=== PATIENT | female | born 1945 | race Caucasian/White ===

== ENCOUNTER 2016-12-18 17:46 | Inpatient (IN) | payer MEDICARE ==
--- NOTE | 2016-12-18 18:30 | ER Document Report ---
ED General - General Chief Complaint: Skin Sore(s) Stated Complaint: FALL/KNEE PAIN Notes: Patient is a 71-year-old female with past medical history of repeated bunionectomies the bilateral feet and hypertension who presents with concerns of a worsening ulcer on the base of her left foot. States she's had bunions removed from this area in the past has never had a wound like this. States the wound has been progressively worse over the last 2 weeks has begun draining in the past 3 days. Nothing seems to improve or worsen her symptoms. She does describe a constant, dull, burning pain to the area. She does not have a local primary care doctor. She denies any constitutional symptoms or fever. States she did fall out of bed last night and was unable to get up off the floor for several hours. She denies hitting her head or neck or sustaining any injuries from that fall. TRAVEL OUTSIDE OF THE [place] IN LAST 30 DAYS: No - Related Data Allergies/Adverse Reactions: Opioids - Morphine Analogues Adverse Reaction (Verified 12/18/16 22:39) ITCHING; NO RASH Past Medical History - General Information source: Patient - Social History Smoking Status: Current Every Day Smoker Frequency of alcohol use: None Drug Abuse: None Lives with: Alone Family History: Reviewed & Not Pertinent Patient has suicidal ideation: No Renal/ Medical History: Denies: Hx Peritoneal Dialysis Review of Systems - Review of Systems Notes: Constitutional: Negative for fever. HENT: Negative for sore throat. Eyes: Negative for visual changes. Cardiovascular: Negative for chest pain. Respiratory: Negative for shortness of breath. Gastrointestinal: Negative for abdominal pain, vomiting or diarrhea. Genitourinary: Negative for dysuria. Musculoskeletal: Left foot pain Skin: Positive for left foot wound Neurological: Negative for headaches, weakness or numbness. 10 point ROS negative except as marked above and in HPI. Physical Exam - Vital signs Vitals: Temp Pulse Resp BP Pulse Ox 98.7 F 98 16 148/79 H 99 12/18/16 18:11 12/18/16 18:11 12/18/16 18:11 12/18/16 18:11 12/18/16 18:11 Interpretation: Hypertensive Notes: PHYSICAL EXAMINATION: GENERAL: Well-appearing, unkempt HEAD: Atraumatic, normocephalic. EYES: Pupils equal round and reactive to light, extraocular movements intact, sclera anicteric, conjunctiva are normal. ENT: nares patent, oropharynx clear without exudates. Moist mucous membranes. NECK: Normal range of motion, supple without lymphadenopathy LUNGS: Breath sounds clear to auscultation bilaterally and equal. No wheezes rales or rhonchi. HEART: Regular rate and rhythm without murmurs ABDOMEN: Soft, nontender, normoactive bowel sounds. No guarding, no rebound. No masses appreciated. EXTREMITIES: There is an open wound is approximately 0.5 cm x 0.5 cm at the base of the first metatarsal of the left foot with purulent drainage coming from the wound. NEUROLOGICAL: No focal neurological deficits. Moves all extremities spontaneously and on command. PSYCH: Normal mood, normal affect. SKIN: Warm, Dry, normal turgor, lesion on the left foot as above Course - Re-evaluation Re-evalutation: 12/18/16 18:28 Patient presents with a chronic left bunion wound on the left foot and concern that she was laying on the ground for most of last night. Patient denies a syncopal episode as the cause for today's fall. No focal neurologic deficits on exam, no evidence of basilar skull fracture on exam without evidence of hemotympanum, raccoon eyes, or periauricular hematoma. No papilledema. Patient is not on anticoagulation. GCS is 15. No loss of consciousness. No episodes of vomiting. Moreover, she is very clear that she did not hit her head or neck. Patient has no focal deformities or limited range of motion in any joint space. Chest and abdominal exam are benign without any focal tenderness, shortness of breath, or bruising over the chest or abdominal wall. Patient has no flank tenderness. Patient does have what appears to be a chronic wound on her plantar surface of the left foot but does have some purulent drainage. Will obtain basic labs, x-rays of the left foot, and reassess. 12/18/16 20:25 Xray demonstrates findings consistent with acute osteomyelitis of the first metatarsal which is clinically consistent with exam findings. Patient will be started on IV Zosyn, vancomycin, and metronidazole. Blood and wound cultures will be obtained. Remainder of her laboratories are unremarkable. A surgical consult and she will require admission to the hospital. 12/18/16 20:30 I discussed this case with Dr. John Gregg who will consult on the patient during her admission. I have spoken to Dr. Feliz the hospitalist will admit. - Vital Signs Vital signs: Temp Pulse Resp BP Pulse Ox 98.7 F 111 H 16 181/99 H 100 12/18/16 18:11 12/19/16 00:27 12/18/16 18:11 12/18/16 22:23 12/18/16 22:23 - Laboratory Result Diagrams: 12/18/16 19:45 12/18/16 19:45 Laboratory results interpreted by me: 12/18/16 12/18/16 19:45 19:45 MCV 103 H MCH 35.1 H RDW 14.9 H Lymphocytes % 7.2 L Monocytes % 18.1 H Sodium 135.3 L Creatinine 0.42 L Glucose 125 H AST 74 H ALT 54 H Alkaline Phosphatase 255 H - Diagnostic Test Radiology reviewed: Image reviewed, Reports reviewed Radiology results interpreted by me: 12/18/16 20:47 Left foot x-ray: Acute osteomyelitis of the first metatarsal Discharge - Discharge Clinical Impression: Osteomyelitis of foot, left, acute Condition: Fair Disposition: ADMITTED INPATIENT Admitting Provider: Greta Feliz Unit Admitted: Telemetry
[2016-12-18 20:00] LABS: ABSOLUTE LYMPHOCYTES (AUTO) 0.5 10^3/uL (0.5-4.7); ABSOLUTE MONOCYTES (AUTO) 1.3 10^3/uL (0.1-1.4); ABSOLUTE NEUT (AUTO) 5.3 10^3/uL (1.7-8.2); BASOPHILS % (AUTO) 0.3 % (0-2); EOSINOPHILS % (AUTO) 0.2 % (0-6); HEMATOCRIT 39.3 % (36.0-47.0); HEMOGLOBIN 13.3 g/dL (12.0-15.5); HGB HCT DIFFERENCE 0.6; LYMPHOCYTES % (AUTO) 7.2 % (13-45); MEAN CORPUSCULAR HEMOGLOBIN 35.1 pg (27.0-33.4); MEAN CORPUSCULAR HGB CONC 33.9 g/dL (32.0-36.0); MEAN CORPUSCULAR VOLUME 103 fl (80-97); MONOCYTES % (AUTO) 18.1 % (3-13); RED CELL DISTRIBUTION WIDTH 14.9 % (11.5-14.0); SEGMENTED NEUTROPHILS % (AUTO) 74.2 % (42-78); WHITE BLOOD COUNT 7.1 10^3/uL (4.0-10.5)
[2016-12-18 20:16] LABS: ALANINE AMINOTRANSFERASE 54 U/L (9-52); ALBUMIN 3.7 g/dL (3.5-5.0); ALKALINE PHOSPHATASE 255 U/L (38-126); ANION GAP 12 (5-19); ASPARTATE AMINO TRANSFERASE 74 U/L (14-36); BILIRUBIN,DIRECT 0.4 mg/dL (0.0-0.4); BLOOD UREA NITROGEN 10 mg/dL (7-20); CALCIUM 8.9 mg/dL (8.4-10.2); CARBON DIOXIDE 24 mmol/L (22-30); CHLORIDE 99 mmol/L (98-107); CREATINE KINASE 32 U/L (30-135); CREATININE RESULT 0.42 mg/dL (0.52-1.25); GLUCOSE 125 mg/dL (75-110); SODIUM 135.3 mmol/L (137-145); TOTAL PROTEIN 6.8 g/dL (6.3-8.2)
[2016-12-18] MEDS ORDERED: PIPERACILLIN/TAZOBACTAM 3.375 GM VIAL IV ONE (20:25)
[2016-12-18] MEDS ORDERED: METRONIDAZOLE 500 MG/NS RTU 100 ML IV ONE (20:25)
[2016-12-18] MEDS ORDERED: VANCOMYCIN HCL INJ 1000 MG VIAL IV ONE (20:45)
[2016-12-18] MEDS ORDERED: DEXTROSE 50%-WATER 25 GM/50 ML DISP.SYRIN IV PRN ×2 (22:34)
[2016-12-18] MEDS ORDERED: DEXTROSE 40% GEL 15 GM TUBE PO PRN ×2 (22:34)
[2016-12-18] MEDS ORDERED: GLUCAGON,HUMAN RECOMB 1 MG INJ SUBCUT PRN (22:34)
[2016-12-18] MEDS ORDERED: MAGNESIUM HYDROXIDE SUSP 30 ML UDCUP PO PRN (22:34)
[2016-12-18] MEDS ORDERED: VANCOMYCIN HCL 0 MG in DEXTROSE 5%-WATER 250 ML IV NR (22:45)
[2016-12-18 22:51] LABS: ADD ON TESTING BLD IN LAB ACKNOWLEDGE
[2016-12-18] MEDS ORDERED: ENALAPRILAT DIHYDRATE INJ/PF 1.25 MG/1 ML SDV IV PRN (22:55)
[2016-12-18] MEDS ORDERED: THIAMINE HCL 100 MG TABLET PO ONE (23:00)
--- NOTE | 2016-12-18 23:04 | PDOC H&P ---
History of Present Illness Admission Date/PCP: 12/18/16 22:06 PCP Uncertain Patient complains of: left foot ulcer History of Present Illness: MARIO MONTELONGO is a 71 year old female with chronic left foot ulcer underlying her first metatarsal head since undergoing bunionectomy in 1980 who presents to the emergency room for evaluation of above complaint. Patient has been discussed with emergency room physician who evaluated the patient. She recently moved to the area from [facility]. Is reportedly living in a motel. Slipped and fell earlier the day of admission. Has severe arthritis and is not able to get off the floor herself. Crawled to the door and called out for help. When the unit assembler arrived, he notices the ulcer on her foot and urged her to come to the emergency room. She denies loss of consciousness or head trauma. Simply slipped and fell. Chronic mild discomfort at the site of the ulcer. She denies fever chills, nausea vomiting, chest or abdominal pain, diarrhea or dysuria. Prior to my being called, the emergency room physician did speak with Dr. Gregg , monotypist orthopedist, who has agreed to follow the patient consultation.. Laboratory results are listed in [facility] and are reviewed. X-ray summary results are listed below, with full report(s) reviewed. . Social history/personal habits: . Lives alone. Has stepchildren. Unemployed for the past 2 weeks. No tobacco use since 1987. No illicit drug use. 3-4 glasses of wine a day. Allergies/adverse reactions are listed in [facility] and are reviewed. Home medications Home medications initially autopopulated into [facility] may not accurately reflect patient's true medications, dosages, and/or frequencies. greenhouse technician to reconcile medications. Unfortunately, patient uncertain of medications/dosages/frequencies. REVIEW OF SYSTEMS: Constitutional: No fever or chills. Eyes: Wears glasses. ENT: No swallowing problems or complaints. No hearing problems or complaints. Pulmonary: No current complaints. Cardiovascular: No current complaints, including chest pain. Gastrointestinal: No current complaints, including nausea or vomiting. Skin: See history and present illness. Hematologic: Easy bruising. Neurologic: No current complaints, including numbness or tingling. Musculoskeletal: See history and present illness. Joint pain from arthritis. Psychiatric: Mild Anxiety depression; denies suicidal or homicidal ideation. Endocrine: No current complaints, including polyuria. Genitourinary: No current complaints, including dysuria. PHYSICAL EXAMINATION: 5 feet 6 inches tall. 65.8 kg. BMI 23.4 kg/m. Blood pressure 153/70. Pulse 97 and regular. 100% saturation on room air. Temperature 98.7. Chronically ill appearing, somewhat unkempt female who nevertheless appears approximately her stated age. Resting quietly in bed. Pleasant awake alert and cooperative. No obvious distress other than somewhat anxious. Skin is warm and dry. No grossly obvious evidence of rash in areas of skin examined. No subcutaneous nodules palpated. See comments under "extremities" below. ENT: Hearing grossly normal to normal conversation. Tongue midline on protrusion pink and slightly moist. Eyes: No scleral icterus. Pupils equal and reactive to light at 4 mm. [place] conjunctivae. Neck is supple and nontender to gentle active range of motion and palpation. Midline trachea. No palpable thyroid nodule mass enlargement or tenderness. Lymphatic: No palpable cervical or clavicular nodes. Neck and lymphatic exams limited by patient body habitus. Psychiatric: Reasonable insight into acute and chronic medical issues. Oriented to time location and why here. Lungs: Auscultation reveals clear and equal breath sounds bilaterally. No use of accessory respiratory muscles. Cardiovascular: Heart regular rate and rhythm, without gallop murmur or rub. No carotid or abdominal aortic bruits. Very mild bilateral symmetric nonpitting ankle and pedal edema. Faintly palpable dorsalis pedis pulses. Abdomen: soft, slightly, distended nontender with positive bowel sounds. Unable to adequately evaluate abdomen for masses or organomegaly due to distention. Extremities: Feet are warm and dry. No calf tenderness to compression. No grossly obvious visual evidence of calf swelling. Gentle manipulation of lower extremities fails to reveal any obvious evidence of injury or instability to knees hips or ankles. Examination of her left foot reveals approximately a 2 x 2 centimeter chronic appearing ulcer on the plantar surface of her medial distal left foot, with what appears to be exposed left first metatarsal head. narrow border of surrounding inflammation and soft tissue swelling, with minimal tenderness to compression. No crepitus fluctuance or expressible discharge. Neurologic: Moves upper extremities grossly normally. Patellar reflexes absent. Absent Babinski. Light touch is intact at feet. Dorsiflexion and plantarflexion of feet 5 / 5 and symmetric. Past Medical History Cardiac Medical History: Reports: Hyperlipidema, Hypertension Denies: Congestive Heart Failure, DVT, Myocardial Infarction, Pulmonary Embolism Pulmonary Medical History: Denies: Asthma, Chronic Obstructive Pulmonary Disease (COPD), Sleep Apnea Neurological Medical History: Denies: Hemorrhagic CVA, Ischemic CVA, Seizures Endocrine Medical History: Reports: Hypothyroidism Denies: Diabetes Mellitus Type 1, Diabetes Mellitus Type 2, Hyperthyroidism Renal/ Medical History: Reports: Nephrolithiasis - History of same. Denies: Chronic Kidney Disease Malignancy Medical History: Reports: Skin Cancer, Other - Rectal cancer, status post surgery chemotherapy and radiation treatment. GI Medical History: Reports: Other - Chronic indigestion. Denies: Cirrhosis, Gastroesophageal Reflux Disease, Hepatitis, Peptic Ulcer Disease Musculoskeltal Medical History: Reports: Arthritis Skin Medical History: Reports: Other - Chronic left foot ulcer. Psychiatric Medical History: Reports: Alcohol Dependency, Depression, General Anxiety Disorder Denies: Substance Abuse, Tobacco Dependency Hematology: Reports: Other - Easy bruising Infectious Medical History: Denies: Clostridium Difficile, Hepatitis B, Hepatitis C, Methicillin- Resistant Staph Aureus Past Surgical History Past Surgical History: Reports: Hysterectomy, Other - Bunionectomy both feet. Surgery for rectal carcinoma. Social History Information Source: Patient, Emergency Med Personnel, [facility] Records Lives with: Alone Smoking Status: Former Smoker Frequency of Alcohol Use: Heavy Drugs: None - Advance Directive Resuscitation Status: Full Code Surrogate healthcare decision maker:: Uncertain at this point in time. Family History Parental Family History Reviewed: Yes Children Family History Reviewed: NA Sibling(s) Family History Reviewed.: Yes Medication/Allergy Home Medications: RX: Levothyroxine Sodium [Synthroid] 50 mcg PO DAILY 12/19/16 RX: Venlafaxine HCl [Effexor Xr] 150 mg PO DAILY 12/19/16 RX: Acetaminophen [Tylenol 325 mg Tablet] 650 mg PO Q8HP PRN #0 tablet 12/23/16 RX: Cetirizine HCl [Zyrtec 10 mg Tablet] 10 mg PO DAILY tablet 12/23/16 RX: Docusate Sodium [Colace 100 mg Capsule] 100 mg PO BID capsule 12/23/16 RX: Ertapenem Sodium [Invanz Inj 1 gm Vial] 1 gm IV DAILY #41 vial 12/23/16 RX: Folic Acid [Folvite 1 mg Tablet] 1 mg PO DAILY tablet 12/23/16 RX: Hydroxyzine HCl [Atarax 10 mg Tablet] 10 mg PO Q6HP PRN tablet 12/23/16 RX: Ketorolac Tromethamine [Toradol 10 mg Tablet] 10 mg PO Q6HP PRN tablet RX: Lisinopril [Prinivil 10 mg Tablet] 20 mg PO Q12 tablet 12/23/16 RX: Multivitamin [Tab-A-Karly (Multiple Vitamin) Tablet] 1 tab PO DAILY tablet 12/23/16 RX: Olopatadine HCl [Patanol 0.1% Oph Soln 5 ml] 1 drop OU DAILY bottle RX: Thiamine HCl [Thiamine 100 mg Tablet] 100 mg PO DAILY tablet 12/23/16 Allergies/Adverse Reactions: Opioids - Morphine Analogues Adverse Reaction (Verified 12/18/16 22:39) ITCHING; NO RASH Physical Exam Vital Signs: Temp Pulse Resp BP Pulse Ox 98.7 F 98 16 181/99 H 100 12/18/16 18:11 12/18/16 18:11 12/18/16 18:11 12/18/16 22:23 12/18/16 22:23 Results Impressions: Foot X-Ray 12/18/16 18:28 IMPRESSION: Osteomyelitis head of 1st metatarsal. Assessment & Plan - Diagnosis (1) Alcohol abuse Is this a current diagnosis for this admission?: YesPlan: Daily multivitamin, thiamine, and folic acid. Observe closely for evidence of alcohol withdrawal. (2) Elevated LFTs Is this a current diagnosis for this admission?: YesPlan: Likely secondary at least in part to ETOH abuse. (3) Foot ulcer, left Qualifiers: Non-pressure ulcer stage: with necrosis of bone Qualified Code(s): L97.524 - Non-pressure chronic ulcer of other part of left foot with necrosis of bone Is this a current diagnosis for this admission?: YesPlan: Orthopedics consult; Dr. Gregg aware and has agreed to see patient in consultation. Intravenous vancomycin; pharmacy to assist with dosing. Contact precautions. I have strongly encouraged patient not to get out of bed without notifying staff , to avoid a fall with injury. Knee high SCDs for DVT prophylaxis, [along with subcutaneous Lovenox . Impression and plans were discussed with patient, who concurs. Time spent in evaluation and management of patient: 62 minutes. (4) Hypothyroid Qualifiers: Hypothyroidism type: unspecified Qualified Code(s): E03.9 - Hypothyroidism, unspecified Is this a current diagnosis for this admission?: YesPlan: TSH pending. Resume home medications as appropriate once these have been determined and reviewed. (5) Osteomyelitis of left foot Qualifiers: Osteomyelitis type: unspecified type Qualified Code(s): M86.9 - Osteomyelitis, unspecified Is this a current diagnosis for this admission?: YesPlan: As above under "left foot ulcer." - Inpatient Certification Based on my medical assessment, after consideration of the patient's comorbidities, presenting symptoms, or acuity I expect that the services needed warrant INPATIENT care.: Yes I certify that my determination is in accordance with my understanding of Medicare's requirements for reasonable and necessary INPATIENT services [42 CFR 412.3e].: Yes Medical Necessity: Need for IV Antibiotics, Need for Surgery, Risk of Complication if Not Cared For in Hospital Post Hospital Care: D/C or Transfer Summary
[2016-12-18 23:05] LABS: MAGNESIUM 1.6 mg/dL (1.6-2.3)
[2016-12-18 23:06] LABS: ALCOHOL < 10 mg/dL (NONE DETECTED)
[2016-12-18] MEDS ORDERED: CEFEPIME INJ 1 GM VIAL IV PRN (23:19)
[2016-12-18] MEDS ORDERED: CEFEPIME 2 GM/D5W RTU 2 GM/50 ML RTUPB IV SCH (23:59)
[2016-12-19] MEDS ORDERED: NORMAL SALINE 1000 ML 1,000 ML IV PRN
[2016-12-19] MEDS ORDERED: VANCOMYCIN HCL INJ 500 MG VIAL ONE (00:45)
[2016-12-19] MEDS ORDERED: VANCOMYCIN HCL INJ 1000 MG VIAL ONE (00:45)
[2016-12-19] MEDS ORDERED: CEFEPIME 2 GM/D5W RTU 2 GM/50 ML RTUPB IV ONE (04:35)
[2016-12-19 06:44] LABS: APPEARANCE,URINE CLEAR; BILIRUBIN,URINE NEGATIVE (NEGATIVE); GLUCOSE, URINE NEGATIVE (NEGATIVE); KETONES,URINE NEGATIVE (NEGATIVE); LEUKOCYTE ESTERASE,URINE TRACE (NEGATIVE); NITRITE,URINE NEGATIVE (NEGATIVE); PROTEIN,URINE NEGATIVE (NEGATIVE); URINE SPECIFIC GRAVITY 1.009; UROBILINOGEN,URINE NEGATIVE mg/dL (<2.0)
[2016-12-19 06:57] LABS: URINE BARBITURATES SCREEN NEGATIVE; URINE METHADONE SCREEN NEGATIVE; URINE OPIATES LOW NEGATIVE; URINE PHENCYCLIDINE SCREEN NEGATIVE
--- NOTE | 2016-12-19 07:22 | PDOC CONSULTATION ---
Consultation Consult Date: 12/19/16 Consult reason:: l foot ulcer History of Present Illness Admission Date/PCP: 12/18/16 22:34 History of Present Illness: The patient's a 71-year-old white female whose new to the [facility] having relocated from [place]. Getting an accurate history is difficult. She reports that she's had bunions all her life and she blames her father for this. When I specifically questioned her, she has not had ulcers over the first metatarsal phalangeal region of the left foot until 4 years ago. Since that time it's been intermittent and associated with weightbearing. The patient denies any previous episodes of sepsis related to her foot. Past Medical History Cardiac Medical History: Reports: Hyperlipidema, Hypertension Denies: Congestive Heart Failure, DVT, Myocardial Infarction, Pulmonary Embolism Pulmonary Medical History: Denies: Asthma, Chronic Obstructive Pulmonary Disease (COPD), Sleep Apnea EENT Medical History: Reports: Other - Easy bruising Neurological Medical History: Denies: Hemorrhagic CVA, Ischemic CVA, Seizures Endocrine Medical History: Reports: Hypothyroidism Denies: Diabetes Mellitus Type 1, Diabetes Mellitus Type 2, Hyperthyroidism Renal/ Medical History: Reports: Nephrolithiasis - History of same. Denies: Chronic Kidney Disease Malignancy Medical History: Reports: Skin Cancer, Other - Rectal cancer, status post surgery chemotherapy and radiation treatment. GI Medical History: Reports: Other - Chronic indigestion. Denies: Cirrhosis, Gastroesophageal Reflux Disease, Hepatitis, Peptic Ulcer Disease Musculoskeltal Medical History: Reports: Arthritis Skin Medical History: Reports: Other - Chronic left foot ulcer. Psychiatric Medical History: Reports: Alcohol Dependency, Depression, General Anxiety Disorder Denies: Substance Abuse, Tobacco Dependency Hematology: Reports: Other - Easy bruising Infectious Medical History: Denies: Clostridium Difficile, Hepatitis B, Hepatitis C, Methicillin- Resistant Staph Aureus Past Surgical History Past Surgical History: Reports: Hysterectomy, Other - Bunionectomy both feet. Surgery for rectal carcinoma. Social History Information Source: Patient, [facility] Records Lives with: Alone Smoking Status: Former Smoker Cigarettes Packs Per Day: 1 Number of Years Smokin Last Time Smoked: 08/08/1988 Frequency of Alcohol Use: Heavy Hx Recreational Drug Use: No Drugs: None Hx Prescription Drug Abuse: No - Advance Directive Resuscitation Status: Full Code Family History Family History: Reviewed & Not Pertinent Parental Family History Reviewed: No Children Family History Reviewed: No Sibling(s) Family History Reviewed.: No Medication/Allergy Allergies/Adverse Reactions: Opioids - Morphine Analogues Adverse Reaction (Verified 12/18/16 22:39) ITCHING; NO RASH Review of Systems All systems: as per PMH Physical Exam Vital Signs: Temp Pulse Resp BP Pulse Ox 37.1 C 111 H 16 181/99 H 100 12/18/16 18:11 12/19/16 00:27 12/18/16 18:11 12/18/16 22:23 12/18/16 22:23 Intake & Output 12/18/16 12/19/16 12/20/16 06:59 06:59 06:59 Intake Total 1097 Balance 1097 Physical Exam: The patient's a somewhat overweight unkept middle-age white female lying in a hospital bed. General appearance: PRESENT: no acute distress Head exam: PRESENT: normocephalic Eye exam: PRESENT: EOMI Respiratory exam: PRESENT: unlabored Cardiovascular exam: PRESENT: RRR Vascular exam: PRESENT: normal capillary refill GI/Abdominal exam: PRESENT: soft Rectal exam: PRESENT: deferred Extremities exam: PRESENT: other - Examination of the left lower extremity reveals full passive range of motion the hip and knee. Left foot has a cavovarus orientation. The first metatarsal phalangeal area is erythematous and swollen. There is a significant hallux valgus deformity. On the plantar surface. There is a 2 cm ulcer that exposes underlying bone. This brisk capillary refill. Neurological exam: PRESENT: alert, awake, oriented to person, oriented to place , oriented to time, oriented to situation Psychiatric exam: PRESENT: anxious Results Laboratory Results: 12/19/16 06:20 Urine Color YELLOW Urine Appearance CLEAR Urine pH 7.0 Ur Specific [place] 1.009 Urine Protein NEGATIVE Urine Glucose (UA) NEGATIVE Urine Ketones NEGATIVE Urine Blood NEGATIVE Urine Nitrite NEGATIVE Ur Leukocyte Esterase TRACE H Urine WBC (Auto) 11 Urine RBC (Auto) 1 Impressions: Foot X-Ray 12/18/16 18:28 IMPRESSION: Osteomyelitis head of 1st metatarsal. Status: Image reviewed by me - Left foot x-rays reveal changes and bone structure at the metatarsal phalangeal region of the great toe of the left foot Assessment & Plan - Diagnosis (1) Osteomyelitis of left foot Qualifiers: Osteomyelitis type: unspecified type Qualified Code(s): M86.9 - Osteomyelitis, unspecified Is this a current diagnosis for this admission?: YesPlan: The patient's a 71-year-old white female with a least a 4 year history of intermittent ulcers in the first metatarsal phalangeal region of the left foot. I think this is a chronic condition that has been present for considerable period of time. The patient is interested in pursuing antibiotic administration and observation which I think is a reasonable choice. If surgery were to be entertained. My bias would be to recommend a forefoot amputation. Simply taking out the first ray will be to transfer ulcers on the remainder the foot particularly with her cavovarus position of the foot. I think that the only time that surgery would be strongly indicated and a chronic condition would be if she were to become septic and it does not seem that that' s the case. - Time Time Spent: 30 to 50 Minutes - Plan Summary Plan Summary: Patient will receive IV antibiotics and continued observation. I think once the acute inflammation is suppressed, she can be mobilized with physical therapy.
[2016-12-19] MEDS ORDERED: CEFEPIME HCL 2 GM in DEXTROSE 5%-WATER 50 ML IV SCH (10:00)
[2016-12-19] MEDS: MULTIVITAMIN TABLET PO SCH (10:35)
[2016-12-19] MEDS: FOLIC ACID 1 MG TABLET PO SCH (10:35)
[2016-12-19] MEDS: ENOXAPARIN SODIUM INJ 40 MG/0.4 ML DISP.SYRIN SUBCUT SCH (10:36)
[2016-12-19] MEDS: THIAMINE HCL 100 MG TABLET PO SCH (10:36)
[2016-12-19] MEDS: DOCUSATE SODIUM 100 MG CAPSULE PO SCH ×2 (10:37→18:17)
[2016-12-19] MEDS: CEFEPIME HCL 2 GM in DEXTROSE 5%-WATER 100 ML IV SCH ×2 (10:48→22:08)
[2016-12-19] MEDS: VANCOMYCIN HCL 1,000 MG in DEXTROSE 5%-WATER 250 ML IV SCH ×2 (11:59→18:16)
--- NOTE | 2016-12-19 15:37 | PDOC PROGRESS REPORT ---
Subjective Progress Note for:: 12/19/16 Subjective:: Patient is seen on morning rounds, she is resting in bed. She is upset because she was just seen by orthopedist, Dr Gregg who told her he needed to amputate her to. She states she wants to try antibiotics first to see if that will help. We did explain that she has osteomyelitis and she needs to follow orthopedics recommendations for the best outcome. She denies any pain at the present time. She denies any shortness of breath, chest pain or dizziness. She denies any nausea, vomiting, or diarrhea. Rest of the review of systems is negative. Physical Exam Vital Signs: Temp Pulse Resp BP Pulse Ox 99 F 57 L 17 166/63 H 100 12/19/16 12:00 12/19/16 12:00 12/19/16 12:00 12/19/16 12:00 12/19/16 12:00 Intake & Output 12/18/16 12/19/16 12/20/16 06:59 06:59 06:59 Intake Total 1097 Balance 1097 General appearance: PRESENT: no acute distress, well-developed, well-nourished Head exam: PRESENT: atraumatic, normocephalic Eye exam: PRESENT: conjunctiva pink, EOMI, PERRLA. ABSENT: scleral icterus Ear exam: PRESENT: normal external ear exam Mouth exam: PRESENT: moist, tongue midline Neck exam: ABSENT: carotid bruit, JVD, lymphadenopathy, thyromegaly Respiratory exam: PRESENT: clear to auscultation [place]. ABSENT: rales, rhonchi, wheezes Cardiovascular exam: PRESENT: RRR. ABSENT: diastolic murmur, rubs, systolic murmur Pulses: PRESENT: normal dorsalis pedis pul Vascular exam: PRESENT: normal capillary refill GI/Abdominal exam: PRESENT: normal bowel sounds, soft. ABSENT: distended, guarding, mass, organolmegaly, rebound, tenderness Rectal exam: PRESENT: deferred Extremities exam: PRESENT: tenderness - left foot Musculoskeletal exam: PRESENT: deformity, tenderness - left first metatarsal Neurological exam: PRESENT: alert, awake, oriented to person, oriented to place , oriented to time, oriented to situation, CN II-XII grossly intact. ABSENT: motor sensory deficit Psychiatric exam: PRESENT: appropriate affect, normal mood. ABSENT: homicidal ideation, suicidal ideation Skin exam: PRESENT: dry, intact, warm. ABSENT: cyanosis, rash Results Laboratory Results: 12/19/16 06:20 Urine Color YELLOW Urine Appearance CLEAR Urine pH 7.0 Ur Specific [place] 1.009 Urine Protein NEGATIVE Urine Glucose (UA) NEGATIVE Urine Ketones NEGATIVE Urine Blood NEGATIVE Urine Nitrite NEGATIVE Ur Leukocyte Esterase TRACE H Urine WBC (Auto) 11 Urine RBC (Auto) 1 Impressions: Foot X-Ray 12/18/16 18:28 IMPRESSION: Osteomyelitis head of 1st metatarsal. Assessment & Plan - Diagnosis (1) Osteomyelitis of foot, left, acute Is this a current diagnosis for this admission?: YesPlan: Patient is on 3 broad spectrum antibiotics. Blood and wound cultures pending. Dr Gregg is following from ortho. He has recommended amputation of the left great toe. Patient is refusing at the present time (2) Hypothyroid Qualifiers: Hypothyroidism type: unspecified Qualified Code(s): E03.9 - Hypothyroidism, unspecified Is this a current diagnosis for this admission?: YesPlan: Continue synthroid. (3) Alcohol abuse Is this a current diagnosis for this admission?: YesPlan: Will monitor for DTs. Patient states she has no problem if she doesn't drink. (4) Osteoarthritis Qualifiers: Osteoarthritis location: multiple joints Is this a current diagnosis for this admission?: YesPlan: Prn pain medications - Time Time Spent with patient: 25-34 minutes Critical Time spent with patient: 15-24 minutes Medications reviewed and adjusted accordingly: Yes Anticipated discharge: Home with Homehealth
[2016-12-20] MEDS: VANCOMYCIN HCL 1,000 MG in DEXTROSE 5%-WATER 250 ML IV SCH ×3 (03:01→17:27)
[2016-12-20] MEDS: CETIRIZINE 10 MG TABLET PO SCH (10:14)
[2016-12-20] MEDS: THIAMINE HCL 100 MG TABLET PO SCH (10:14)
[2016-12-20] MEDS: VENLAFAXINE HCL 75 MG CAP.SR.24H PO SCH (10:14)
[2016-12-20] MEDS: MULTIVITAMIN TABLET PO SCH (10:14)
[2016-12-20] MEDS: FOLIC ACID 1 MG TABLET PO SCH (10:15)
[2016-12-20] MEDS: LEVOTHYROXINE SODIUM 0.05 MG TABLET PO SCH (10:15)
[2016-12-20] MEDS: CEFEPIME HCL 2 GM in DEXTROSE 5%-WATER 100 ML IV SCH ×2 (10:16→21:16)
[2016-12-20] MEDS: OLOPATADINE HCL 0.1% OPH SOLN 5 ML OU SCH (10:16)
[2016-12-20] MEDS: ENOXAPARIN SODIUM INJ 40 MG/0.4 ML DISP.SYRIN SUBCUT SCH (10:17)
[2016-12-20] MEDS: DOCUSATE SODIUM 100 MG CAPSULE PO SCH ×2 (10:18→17:27)
[2016-12-20 11:01] LABS: CREATININE RESULT 0.61 mg/dL (0.52-1.25)
--- NOTE | 2016-12-20 16:59 | PDOC PROGRESS REPORT ---
Subjective Progress Note for:: 12/20/16 Subjective:: Patient is seen on morning rounds, she is resting in bed. She denies any chest pain, shortness of breath, or dyspnea. She denies any fevers or chills. She denies any nausea, vomiting or abdominal pain. She states she's having frequent urination because of IV fluids she was given yesterday. She denies any dysuria or hematuria. She has some pain in the left foot. She denies any other pain at the present time. Rest of the review of systems is negative. Physical Exam Vital Signs: Temp Pulse Resp BP Pulse Ox 98.6 F 79 17 143/73 H 98 12/20/16 14:56 12/20/16 14:56 12/20/16 14:56 12/20/16 14:56 12/20/16 14:56 Intake & Output 12/19/16 12/20/16 12/21/16 06:59 06:59 06:59 Intake Total 1097 2620 680 Output Total 100 400 Balance 1097 2520 280 General appearance: PRESENT: no acute distress, thin, well-developed, well- nourished Head exam: PRESENT: atraumatic, normocephalic Eye exam: PRESENT: conjunctiva pink, EOMI, PERRLA. ABSENT: scleral icterus Ear exam: PRESENT: normal external ear exam Mouth exam: PRESENT: moist, tongue midline Neck exam: ABSENT: carotid bruit, JVD, lymphadenopathy, thyromegaly Respiratory exam: PRESENT: accessory muscle use Pulses: PRESENT: normal dorsalis pedis pul GI/Abdominal exam: PRESENT: normal bowel sounds, soft. ABSENT: distended, guarding, mass, organolmegaly, rebound, tenderness Rectal exam: PRESENT: deferred Extremities exam: PRESENT: tenderness - left forefoot Musculoskeletal exam: PRESENT: ambulatory, deformity - left foot Neurological exam: PRESENT: alert, awake, oriented to person, oriented to place , oriented to time, oriented to situation, CN II-XII grossly intact. ABSENT: motor sensory deficit Psychiatric exam: PRESENT: anxious Skin exam: PRESENT: dry, intact, warm, other - erthyema of left great toe. ABSENT: cyanosis, rash Results Laboratory Results: 12/20/16 09:49 12/20/16 09:49 Creatinine 0.61 Est GFR ( Amer) > 60 Est GFR (Non-Af Amer) > 60 Impressions: Foot X-Ray 12/18/16 18:28 IMPRESSION: Osteomyelitis head of 1st metatarsal. Assessment & Plan - Diagnosis (1) Osteomyelitis of foot, left, acute Is this a current diagnosis for this admission?: YesPlan: Patient is on 3 broad spectrum antibiotics. Blood and wound cultures pending. Dr Gregg is following from ortho. He has recommended amputation of the left great toe. Patient is refusing at the present time (2) Hypothyroid Qualifiers: Hypothyroidism type: unspecified Qualified Code(s): E03.9 - Hypothyroidism, unspecified Is this a current diagnosis for this admission?: YesPlan: Continue synthroid. (3) Alcohol abuse Is this a current diagnosis for this admission?: YesPlan: Will monitor for DTs. Patient states she has no problem if she doesn't drink. (4) Osteoarthritis Qualifiers: Osteoarthritis location: multiple joints Is this a current diagnosis for this admission?: YesPlan: Prn pain medications - Time Time Spent with patient: 25-34 minutes Critical Time spent with patient: 15-24 minutes Medications reviewed and adjusted accordingly: Yes
[2016-12-20] MEDS: ACETAMINOPHEN 325 MG TABLET PO PRN (17:26)
[2016-12-21] MEDS ORDERED: DIPHENHYDRAMINE HCL 50 MG/ML VIAL IV ONE (04:30)
[2016-12-21] MEDS: VANCOMYCIN HCL 1,000 MG in DEXTROSE 5%-WATER 250 ML IV SCH (06:01)
[2016-12-21 06:05] LABS: HEMATOCRIT 34.4 % (36.0-47.0); HEMOGLOBIN 11.8 g/dL (12.0-15.5); MEAN CORPUSCULAR HEMOGLOBIN 35.4 pg (27.0-33.4); MEAN CORPUSCULAR HGB CONC 34.2 g/dL (32.0-36.0); MEAN CORPUSCULAR VOLUME 103 fl (80-97); RED BLOOD COUNT 3.33 10^6/uL (3.72-5.28); RED CELL DISTRIBUTION WIDTH 14.9 % (11.5-14.0); WHITE BLOOD COUNT 4.5 10^3/uL (4.0-10.5)
[2016-12-21 06:16] LABS: ANION GAP 13 (5-19); BLOOD UREA NITROGEN 11 mg/dL (7-20); CALCIUM 9.3 mg/dL (8.4-10.2); CARBON DIOXIDE 26 mmol/L (22-30); CHLORIDE 98 mmol/L (98-107); CREATININE RESULT 0.51 mg/dL (0.52-1.25); GLUCOSE 104 mg/dL (75-110); POTASSIUM 3.2 mmol/L (3.6-5.0)
[2016-12-21 06:49] LABS: BASOPHILS % (MANUAL) 2 % (0-2); EOSINOPHILS % (MANUAL) 1 % (0-6); LYMPHOCYTES % (MANUAL) 16 % (13-45); TOTAL CELLS COUNTED 100
[2016-12-21 06:54] LABS: ANISOCYTOSIS SLIGHT; POLYCHROMASIA 1+; TOXIC GRANULATION SLIGHT
[2016-12-21] MEDS: ENOXAPARIN SODIUM INJ 40 MG/0.4 ML DISP.SYRIN SUBCUT SCH (10:17)
[2016-12-21] MEDS: CEFEPIME HCL 2 GM in DEXTROSE 5%-WATER 100 ML IV SCH ×2 (10:17→21:22)
[2016-12-21] MEDS: MULTIVITAMIN TABLET PO SCH (10:20)
[2016-12-21] MEDS: CETIRIZINE 10 MG TABLET PO SCH (10:20)
[2016-12-21] MEDS: FOLIC ACID 1 MG TABLET PO SCH (10:20)
[2016-12-21] MEDS: VENLAFAXINE HCL 75 MG CAP.SR.24H PO SCH (10:20)
[2016-12-21] MEDS: LEVOTHYROXINE SODIUM 0.05 MG TABLET PO SCH (10:20)
[2016-12-21] MEDS: THIAMINE HCL 100 MG TABLET PO SCH (10:20)
[2016-12-21] MEDS: DOCUSATE SODIUM 100 MG CAPSULE PO SCH ×2 (10:21→19:34)
[2016-12-21] MEDS: OLOPATADINE HCL 0.1% OPH SOLN 5 ML OU SCH (10:30)
[2016-12-21] MEDS ORDERED: HYDROXYZINE HCL 10 MG TABLET PO PRN (10:31)
[2016-12-21] MEDS ORDERED: POTASSIUM CHLORIDE 10 MEQ TABLET.SA PO ONE (11:00)
[2016-12-21 11:30] LABS: PROTHROMBIN TIME 13.7 SEC (11.4-15.4)
[2016-12-21] MEDS ORDERED: HYDROXYZINE HCL 10 MG TABLET PO ONE (12:00)
--- NOTE | 2016-12-21 15:58 | PDOC PROGRESS REPORT ---
Subjective Progress Note for:: 12/21/16 Subjective:: The patient was seen earlier today on rounds. The patient complains of itching on one palm. The patient denies any nausea, vomiting, diarrhea, shortness of breath, dizziness, chest pain, heart palpitations, fevers, or chills. The patient has remained afebrile. Blood pressures have been in a good range. When prompted the patient voices no other concerns at this time. Review of systems: The rest of the review of systems is negative. Physical Exam Vital Signs: Temp Pulse Resp BP Pulse Ox 98.3 F 77 16 149/69 H 97 12/21/16 12:00 12/21/16 12:00 12/21/16 12:00 12/21/16 12:00 12/21/16 12:00 Intake & Output 12/19/16 12/20/16 12/21/16 23:59 23:59 23:59 Intake Total 2227 3280 1170 Output Total 100 400 200 Balance 2127 2880 970 General appearance: PRESENT: no acute distress, thin, well-developed, well- nourished Head exam: PRESENT: atraumatic, normocephalic Eye exam: PRESENT: conjunctiva pink, EOMI, PERRLA. ABSENT: scleral icterus Ear exam: PRESENT: normal external ear exam Mouth exam: PRESENT: moist, tongue midline Neck exam: ABSENT: carotid bruit, JVD, lymphadenopathy, thyromegaly Respiratory exam: PRESENT: accessory muscle use Pulses: PRESENT: normal dorsalis pedis pul GI/Abdominal exam: PRESENT: normal bowel sounds, soft. ABSENT: distended, guarding, mass, organolmegaly, rebound, tenderness Rectal exam: PRESENT: deferred Extremities exam: PRESENT: tenderness - left forefoot Musculoskeletal exam: PRESENT: ambulatory, deformity - left foot Neurological exam: PRESENT: alert, awake, oriented to person, oriented to place , oriented to time, oriented to situation, CN II-XII grossly intact. ABSENT: motor sensory deficit Psychiatric exam: PRESENT: anxious Skin exam: PRESENT: dry, intact, warm, other - erthyema of left great toe. ABSENT: cyanosis, rash Results Laboratory Results: 12/21/16 05:24 12/21/16 05:24 12/21/16 12/21/16 05:24 05:24 WBC 4.5 RBC 3.33 L Hgb 11.8 L Hct 34.4 L MCV 103 H MCH 35.4 H MCHC 34.2 RDW 14.9 H Plt Count 327 Seg Neutrophils % Not Reportable Lymphocytes % Not Reportable Monocytes % Not Reportable Eosinophils % Not Reportable Basophils % Not Reportable Absolute Neutrophils Not Reportable Absolute Lymphocytes Not Reportable Absolute Monocytes Not Reportable Absolute Eosinophils Not Reportable Absolute Basophils Not Reportable Sodium 137.0 Potassium 3.2 L Chloride 98 Carbon Dioxide 26 Anion Gap 13 BUN 11 Creatinine 0.51 L Est GFR ( Amer) > 60 Est GFR (Non-Af Amer) > 60 Glucose 104 Calcium 9.3 Impressions: Foot X-Ray 12/18/16 18:28 IMPRESSION: Osteomyelitis head of 1st metatarsal. Assessment & Plan - Diagnosis (1) Osteomyelitis of foot, left, acute Is this a current diagnosis for this admission?: YesPlan: Has refused amputation. Will continue IV abx. Will place PICC. Will consult social work for rehab placement. (2) Elevated LFTs Is this a current diagnosis for this admission?: YesPlan: Alcoholic hepatitis (3) Alcohol abuse Is this a current diagnosis for this admission?: Yes (4) Hypothyroid Qualifiers: Hypothyroidism type: unspecified Qualified Code(s): E03.9 - Hypothyroidism, unspecified Is this a current diagnosis for this admission?: Yes (5) Hypokalemia Is this a current diagnosis for this admission?: YesPlan: Will supplement. (6) Osteoarthritis Qualifiers: Osteoarthritis location: multiple joints Osteoarthritis type: primary Qualified Code(s): M15.0 - Primary generalized (osteo)arthritis Is this a current diagnosis for this admission?: Yes - Time Time Spent with patient: 25-34 minutes Medications reviewed and adjusted accordingly: Yes Anticipated discharge: SNF Within: when bed available
[2016-12-21] MEDS: ACETAMINOPHEN 325 MG TABLET PO PRN (21:22)
[2016-12-21] MEDS: FAMOTIDINE 20 MG TABLET PO SCH (21:22)
[2016-12-22] MEDS: ACETAMINOPHEN 325 MG TABLET PO PRN (05:02)
[2016-12-22] MEDS: VENLAFAXINE HCL 75 MG CAP.SR.24H PO SCH (09:58)
[2016-12-22] MEDS: MULTIVITAMIN TABLET PO SCH (09:59)
[2016-12-22] MEDS: LEVOTHYROXINE SODIUM 0.05 MG TABLET PO SCH (09:59)
[2016-12-22] MEDS: THIAMINE HCL 100 MG TABLET PO SCH (09:59)
[2016-12-22] MEDS: FAMOTIDINE 20 MG TABLET PO SCH ×2 (09:59→22:06)
[2016-12-22] MEDS: CETIRIZINE 10 MG TABLET PO SCH (09:59)
[2016-12-22] MEDS: FOLIC ACID 1 MG TABLET PO SCH (09:59)
[2016-12-22] MEDS: ENOXAPARIN SODIUM INJ 40 MG/0.4 ML DISP.SYRIN SUBCUT SCH (10:00)
[2016-12-22] MEDS: DOCUSATE SODIUM 100 MG CAPSULE PO SCH ×2 (10:10→17:42)
[2016-12-22] MEDS: OLOPATADINE HCL 0.1% OPH SOLN 5 ML OU SCH (10:10)
[2016-12-22] MEDS: CEFEPIME HCL 2 GM in DEXTROSE 5%-WATER 100 ML IV SCH ×2 (10:10→22:34)
[2016-12-22] MEDS ORDERED: LISINOPRIL 10 MG TABLET PO ONE (11:00)
[2016-12-22] MEDS ORDERED: LISINOPRIL 10 MG TABLET ONE (14:04)
[2016-12-22] MEDS: KETOROLAC TROMETHAMINE 10 MG TABLET PO PRN ×2 (14:05→22:06)
--- NOTE | 2016-12-22 15:27 | PDOC PROGRESS REPORT ---
Subjective Progress Note for:: 12/22/16 Subjective:: The patient was seen earlier today on rounds. The patient states that her itching has resolved. The patient denies any nausea, vomiting, diarrhea, shortness of breath, dizziness, chest pain, heart palpitations, fevers, or chills. The patient states that she is having pain in both of her knees. The patient has remained afebrile. Blood pressures have been in a good range. When prompted the patient voices no other concerns at this time. Review of systems: The rest of the review of systems is negative. Physical Exam Vital Signs: Temp Pulse Resp BP Pulse Ox 98.6 F 89 16 140/82 H 99 12/22/16 07:41 12/22/16 07:41 12/22/16 07:41 12/22/16 07:41 12/22/16 07:41 Intake & Output 12/20/16 12/21/16 12/22/16 23:59 23:59 23:59 Intake Total 3280 1270 100 Output Total 400 200 Balance 2880 1070 100 Weight 65.77 kg General appearance: PRESENT: no acute distress, thin, well-developed, well- nourished Head exam: PRESENT: atraumatic, normocephalic Eye exam: PRESENT: conjunctiva pink, EOMI, PERRLA. ABSENT: scleral icterus Ear exam: PRESENT: normal external ear exam Mouth exam: PRESENT: moist, tongue midline Neck exam: ABSENT: carotid bruit, JVD, lymphadenopathy, thyromegaly Respiratory exam: PRESENT: accessory muscle use Pulses: PRESENT: normal dorsalis pedis pul GI/Abdominal exam: PRESENT: normal bowel sounds, soft. ABSENT: distended, guarding, mass, organolmegaly, rebound, tenderness Rectal exam: PRESENT: deferred Extremities exam: PRESENT: tenderness - left forefoot Musculoskeletal exam: PRESENT: ambulatory, deformity - left foot Neurological exam: PRESENT: alert, awake, oriented to person, oriented to place , oriented to time, oriented to situation, CN II-XII grossly intact. ABSENT: motor sensory deficit Psychiatric exam: PRESENT: anxious Skin exam: PRESENT: dry, intact, warm, other - erthyema of left great toe. ABSENT: cyanosis, rash Results Laboratory Results: 12/21/16 05:24 12/21/16 05:24 Impressions: Foot X-Ray 12/18/16 18:28 IMPRESSION: Osteomyelitis head of 1st metatarsal. Assessment & Plan - Diagnosis (1) Osteomyelitis of foot, left, acute Is this a current diagnosis for this admission?: YesPlan: Has refused amputation. Will continue IV abx. Will place PICC. Will consult social work for rehab placement. (2) Elevated LFTs Is this a current diagnosis for this admission?: YesPlan: Alcoholic hepatitis (3) Alcohol abuse Is this a current diagnosis for this admission?: YesPlan: Will continue B supplements (4) Hypothyroid Qualifiers: Hypothyroidism type: unspecified Qualified Code(s): E03.9 - Hypothyroidism, unspecified Is this a current diagnosis for this admission?: YesPlan: Will continue home medications. (5) Hypokalemia Is this a current diagnosis for this admission?: YesPlan: Will supplement. Repeat in the a.m. (6) Osteoarthritis Qualifiers: Osteoarthritis location: multiple joints Osteoarthritis type: primary Qualified Code(s): M15.0 - Primary generalized (osteo)arthritis Is this a current diagnosis for this admission?: YesPlan: The patient is allergic to opiates. Will add Toradol creatinine is at baseline. - Time Time Spent with patient: 25-34 minutes Medications reviewed and adjusted accordingly: Yes Anticipated discharge: SNF Within: within 24 hours, within 48 hours, when bed available Disposition: The patient is a full code. Pending patient's symptomatology and diagnostic findings will reevaluate in the a.m.
[2016-12-22] MEDS ORDERED: NORMAL SALINE 10 ML SDV (AFTER EACH USE) IV PRN (16:21)
[2016-12-22] MEDS: LISINOPRIL 10 MG TABLET PO SCH (22:05)
[2016-12-22] MEDS: NORMAL SALINE 10 ML SDV (SCHEDULED) IV SCH (22:07)
[2016-12-23] MEDS: ACETAMINOPHEN 325 MG TABLET PO PRN (00:59)
--- NOTE | 2016-12-23 09:44 | PDOC TRANSFER SUMMARY ---
General - Admit/Disc Date/PCP Admission Date/Primary Care Provider: 12/18/16 22:34 Discharge Date: 12/23/16 - Discharge Diagnosis (1) Osteomyelitis of foot, left, acute Is this a current diagnosis for this admission?: YesSummary: Most likely acute on chronic (2) Elevated LFTs Is this a current diagnosis for this admission?: Yes (3) Alcohol abuse Is this a current diagnosis for this admission?: Yes (4) Hypothyroid Is this a current diagnosis for this admission?: Yes (5) Hypokalemia Is this a current diagnosis for this admission?: Yes (6) Osteoarthritis Is this a current diagnosis for this admission?: Yes (7) Hypertension Is this a current diagnosis for this admission?: Yes - Additional Information Resuscitation Status: Full Code Discharge Diet: As Tolerated Discharge Activity: Activity As Tolerated, Supervised Activity Home Medications: Levothyroxine Sodium [Synthroid] 50 mcg PO DAILY 12/19/16 Venlafaxine HCl [Effexor Xr] 150 mg PO DAILY 12/19/16 Acetaminophen [Tylenol 325 mg Tablet] 650 mg PO Q8HP PRN #0 tablet 12/23/16 Cetirizine HCl [Zyrtec 10 mg Tablet] 10 mg PO DAILY tablet 12/23/16 Docusate Sodium [Colace 100 mg Capsule] 100 mg PO BID capsule 12/23/16 Ertapenem Sodium [Invanz Inj 1 gm Vial] 1 gm IV DAILY #41 vial 12/23/16 Folic Acid [Folvite 1 mg Tablet] 1 mg PO DAILY tablet 12/23/16 Hydroxyzine HCl [Atarax 10 mg Tablet] 10 mg PO Q6HP PRN tablet 12/23/16 Ketorolac Tromethamine [Toradol 10 mg Tablet] 10 mg PO Q6HP PRN tablet Lisinopril [Prinivil 10 mg Tablet] 20 mg PO Q12 tablet 12/23/16 Multivitamin [Tab-A-Karly (Multiple Vitamin) Tablet] 1 tab PO DAILY tablet 12/23 Olopatadine HCl [Patanol 0.1% Oph Soln 5 ml] 1 drop OU DAILY bottle 12/23/16 Thiamine HCl [Thiamine 100 mg Tablet] 100 mg PO DAILY tablet 12/23/16 History of Present Illness Admission Date/PCP: 12/18/16 22:34 Patient complains of: Foot pain History of Present Illness: MARIO MONTELONGO is a 71 year old female with chronic left foot ulcer underlying her first metatarsal head since undergoing bunionectomy in 1980 who presents to the emergency room for evaluation of foot pain. The patient does have a history of alcohol abuse. The patient notes a history of bilateral knee osteoarthritis. She recently moved to the area from [facility]. Is reportedly living in a motel. Slipped and fell earlier the day of admission. Has severe arthritis and is not able to get off the floor herself. Crawled to the door and called out for help. When the community mental health social worker arrived, he notices the ulcer on her foot and urged her to come to the emergency room. She denies loss of consciousness or head trauma. Simply slipped and fell. Chronic mild discomfort at the site of the ulcer. She denies fever chills, nausea vomiting, chest or abdominal pain, diarrhea or dysuria. The patient's plain film x-ray was consistent with osteomyelitis and the patient was referred to the hospitalist remission and management. Hospital Course Hospital Course: Getting an accurate history is difficult. She reports that she's had bunions all her life and she blames her father for this. When specifically questioned, she has had ulcers over the first metatarsal phalangeal region of the left foot until 4 years ago. Since that time it's been intermittent and associated with weightbearing. The patient denies any previous episodes of sepsis related to her foot. Patient is unable to provide any history of previous cultures or biopsies or treatments. The patient was admitted to continuous telemetry unit. The patient was started on antibiotic coverage including cefepime. The patient was recommended amputation by orthopedics however the patient adamantly refused this. The patient also delayed PICC line placement stating "I have to get mentally prepare for this". I called and discussed the case with infectious disease at [facility] given that the patient has refused any operative intervention or biopsy. Recommendations were made for ertapenem 1 gram daily 6 weeks. I have made the patient aware that most likely she will have to come back to the hospital and most likely will develop a sepsis due to the severity of this foot. The patient is adamant that she wants IV antibiotic management only at this time. Patient will be referred outpatient wound care for vascular workup. The patient's main complaint is of bilateral knee pain which she associates with osteoarthritis. Patient's creatinine is within normal limits and therefore was started on Toradol as needed. The patient is allergic to opiate derivatives and therefore her pain management is limited. She has done well with the Toradol this time we will defer other medications for now. Physical Exam Vital Signs: Temp Pulse Resp BP Pulse Ox 98.2 F 82 18 144/76 H 100 12/23/16 07:39 12/23/16 07:39 12/23/16 07:39 12/23/16 07:39 12/23/16 07:39 Intake & Output 12/21/16 12/22/16 12/23/16 23:59 23:59 23:59 Intake Total 1270 550 580 Output Total 200 Balance 1070 550 580 Weight 65.77 kg General appearance: PRESENT: no acute distress, thin, well-developed, well- nourished Head exam: PRESENT: atraumatic, normocephalic Eye exam: PRESENT: conjunctiva pink, EOMI, PERRLA. ABSENT: scleral icterus Ear exam: PRESENT: normal external ear exam Mouth exam: PRESENT: moist, tongue midline Neck exam: ABSENT: carotid bruit, JVD, lymphadenopathy, thyromegaly Respiratory exam: PRESENT: accessory muscle use Pulses: PRESENT: normal dorsalis pedis pul GI/Abdominal exam: PRESENT: normal bowel sounds, soft. ABSENT: distended, guarding, mass, organolmegaly, rebound, tenderness Rectal exam: PRESENT: deferred Extremities exam: PRESENT: tenderness - left forefoot Musculoskeletal exam: PRESENT: ambulatory, deformity - left foot Neurological exam: PRESENT: alert, awake, oriented to person, oriented to place , oriented to time, oriented to situation, CN II-XII grossly intact. ABSENT: motor sensory deficit Psychiatric exam: PRESENT: anxious Skin exam: PRESENT: dry, intact, warm, other - erthyema of left great toe. ABSENT: cyanosis, rash Results Laboratory Results: 12/18/16 12/18/16 12/18/16 19:45 22:32 22:32 Sodium 135.3 L Potassium 4.0 Chloride 99 Carbon Dioxide 24 BUN 10 Creatinine 0.42 L Glucose 125 H Calcium 8.9 Magnesium 1.6 Total Bilirubin 1.0 AST 74 H ALT 54 H Alkaline Phosphatase 255 H Creatine Kinase 32 Total Protein 6.8 Albumin 3.7 TSH 2.23 Urine Color 12/18/16 12/19/16 12/21/16 23:35 06:20 05:24 Sodium Potassium 3.2 L Chloride Carbon Dioxide BUN Creatinine Glucose Calcium Magnesium Total Bilirubin AST ALT Alkaline Phosphatase Creatine Kinase Total Protein Albumin TSH Urine Color YELLOW Urine Appearance CLEAR Urine pH 7.0 Ur Specific [place] 1.009 Urine Protein NEGATIVE Urine Glucose (UA) NEGATIVE Urine Ketones NEGATIVE Urine Blood NEGATIVE Urine Nitrite NEGATIVE Urine Bilirubin NEGATIVE Urine Urobilinogen NEGATIVE Ur Leukocyte Esterase TRACE H Urine WBC (Auto) 11 Urine RBC (Auto) 1 Squamous Epi Cells Auto 1 Urine Ascorbic Acid NEGATIVE Hepatitis A IgM Ab Negative Hep Bs Antigen Negative Hep B Core IgM Ab Negative Hepatitis C Antibody <0.1 12/18/16 23:35 Blood Culture - Preliminary Blood NO GROWTH 4 DAYS 12/18/16 22:12 Blood Culture - Preliminary Blood NO GROWTH 4 DAYS 12/18/16 21:34 Gram Stain - Final Foot - Left Wound Culture - Final Group B Beta Streptococcus Skin Rosa Impressions: Foot X-Ray 12/18/16 18:28 IMPRESSION: Osteomyelitis head of 1st metatarsal. Guidance Fluoroscopy 12/22/16 00:00 IMPRESSION: SUCCESSFUL PLACEMENT OF A 5 FR DUAL LUMEN 41 CM PICC IN THE LEFT BASILIC VEIN. Interventional Vascular Procedure 12/22/16 00:00 IMPRESSION: SUCCESSFUL PLACEMENT OF A 5 FR DUAL LUMEN 41 CM PICC IN THE LEFT BASILIC VEIN. PICC Line Insertion 12/22/16 00:00 IMPRESSION: SUCCESSFUL PLACEMENT OF A 5 FR DUAL LUMEN 41 CM PICC IN THE LEFT BASILIC VEIN. Qualifiers PATEINT BEING DISCHARGED WITH ANY OF THE FOLLOWING DIAGNOSIS?: No Plan Discharge Plan: The patient will need to follow-up with the wound care center for outpatient evaluation and workup. The patient is a very high risk for readmission given her refusal to undergo biopsy or amputation. Time Spent: Greater than 30 Minutes
[2016-12-23] MEDS ORDERED: ERTAPENEM SODIUM 1 GM in NORMAL SALINE 50 ML IV SCH (10:00)
[2016-12-23] MEDS: ENOXAPARIN SODIUM INJ 40 MG/0.4 ML DISP.SYRIN SUBCUT SCH (10:02)
[2016-12-23 10:13] LABS: HEMATOCRIT 28.4 % (36.0-47.0); HEMOGLOBIN 9.8 g/dL (12.0-15.5); MEAN CORPUSCULAR HEMOGLOBIN 35.9 pg (27.0-33.4); MEAN CORPUSCULAR HGB CONC 34.5 g/dL (32.0-36.0); MEAN CORPUSCULAR VOLUME 104 fl (80-97); RED BLOOD COUNT 2.73 10^6/uL (3.72-5.28); RED CELL DISTRIBUTION WIDTH 14.6 % (11.5-14.0); WHITE BLOOD COUNT 6.7 10^3/uL (4.0-10.5)
[2016-12-23] MEDS ORDERED: ACETAMINOPHEN 325 MG TABLET PO ONE (10:30)
[2016-12-23] MEDS: FAMOTIDINE 20 MG TABLET PO SCH (10:30)
[2016-12-23] MEDS: LEVOTHYROXINE SODIUM 0.05 MG TABLET PO SCH (10:31)
[2016-12-23] MEDS: DOCUSATE SODIUM 100 MG CAPSULE PO SCH (10:31)
[2016-12-23] MEDS: THIAMINE HCL 100 MG TABLET PO SCH (10:31)
[2016-12-23] MEDS: MULTIVITAMIN TABLET PO SCH (10:31)
[2016-12-23] MEDS: CETIRIZINE 10 MG TABLET PO SCH (10:31)
[2016-12-23] MEDS: FOLIC ACID 1 MG TABLET PO SCH (10:31)
[2016-12-23] MEDS: LISINOPRIL 10 MG TABLET PO SCH (10:32)
[2016-12-23] MEDS: VENLAFAXINE HCL 75 MG CAP.SR.24H PO SCH (10:32)
[2016-12-23 10:33] LABS: ANION GAP 9 (5-19); BLOOD UREA NITROGEN 14 mg/dL (7-20); CALCIUM 8.1 mg/dL (8.4-10.2); CARBON DIOXIDE 26 mmol/L (22-30); CHLORIDE 100 mmol/L (98-107); CREATININE RESULT 0.45 mg/dL (0.52-1.25); GLUCOSE 129 mg/dL (75-110); MAGNESIUM 1.5 mg/dL (1.6-2.3); POTASSIUM 3.1 mmol/L (3.6-5.0); SODIUM 135.3 mmol/L (137-145)
[2016-12-23] MEDS: OLOPATADINE HCL 0.1% OPH SOLN 5 ML OU SCH (10:38)
[2016-12-23] MEDS: NORMAL SALINE 10 ML SDV (SCHEDULED) IV SCH (10:41)
[2016-12-23] MEDS ORDERED: POTASSIUM CHLORIDE 10 MEQ TABLET.SA PO ONE ×2 (11:45→15:00)
[2016-12-23 12:02] VITALS: BP 153/74
[2016-12-23] MEDS ORDERED: MAGNESIUM OXIDE 400 MG TABLET PO ONE (15:00)
== END 2016-12-23 15:20 | DRG 541 ==
LOC: ER 17:46 → UNDOADMIN 22:06 → EH 22:06 → 4N 23:54
PROVIDERS: ADMIT Family Medicine; ATTEND Family Medicine
PROC: 02HV33Z Insertion of Infusion Device into Superior Vena Cava, Percutaneous Approach (ICD-10-PCS; principal; 2016-12-22)
PROC: B5181ZA Fluoroscopy of Superior Vena Cava using Low Osmolar Contrast, Guidance (ICD-10-PCS; 2016-12-22)
PROC: B548ZZA Ultrasonography of Superior Vena Cava, Guidance (ICD-10-PCS; 2016-12-22)
DX: M86.172 Other acute osteomyelitis, left ankle and foot (principal); M86.672 Other chronic osteomyelitis, left ankle and foot; L97.524 Non-pressure chronic ulcer of other part of left foot with necrosis of bone; F10.10 Alcohol abuse, uncomplicated; E03.9 Hypothyroidism, unspecified; E87.6 Hypokalemia; I10 Essential (primary) hypertension; M17.0 Bilateral primary osteoarthritis of knee; E78.5 Hyperlipidemia, unspecified; Z79.899 Other long term (current) drug therapy; Z90.710 Acquired absence of both cervix and uterus; Z85.528 Personal history of other malignant neoplasm of kidney; Z85.828 Personal history of other malignant neoplasm of skin; Z87.891 Personal history of nicotine dependence; Z88.8 Allergy status to other drugs, medicaments and biological substances
CPT/HCPCS: 36415; 36569; 76937; 77001; 80048; 80053; 80074; 80202; 80307; 81001; 82550; 82565; 83735; 84443; 85025; 85027; 85610; 87040; 87070; 87077; 87205; 96365; 96367; 99284; G8978-GP; G8979-GP; J0692; J1200; J1335; J1642; J1650; J2543; J3370; J3490; J7030; J7060

== ENCOUNTER 2017-01-06 23:14 | Emergency (ER) | payer MEDICARE ==
--- NOTE | 2017-01-06 23:39 | ER Document Report ---
ED Fall - General Stated Complaint: FALL,HEAD INJURY Time seen by provider: 23:30 Notes: Patient is a 71-year-old female that comes emergency department for chief complaint of fall, she states she accidentally slipped out of her wheelchair when she was turning, she states she fell backwards and hit her head on the floor causing a bump and painful swelling. She denies loss of consciousness, vomiting, she reports soreness of the area but no headache otherwise, she denies focal numbness or weakness, she is not on a blood thinner. She denies any other injuries or any other symptoms. TRAVEL OUTSIDE OF THE [place] IN LAST 30 DAYS: No - Related data Allergies/Adverse Reactions: Opioids - Morphine Analogues Adverse Reaction (Verified 12/18/16 22:39) ITCHING; NO RASH Past Medical History - General Information source: Patient - Social History Smoking Status: Never Smoker Frequency of alcohol use: None Drug Abuse: None Lives with: [facility] Family History: Reviewed & Not Pertinent - Past Medical History Cardiac Medical History: Reports: Hx Hypercholesterolemia, Hx Hypertension Denies: Hx Congestive Heart Failure, Hx DVT, Hx Heart Attack, Hx Pulmonary Embolism Pulmonary Medical History: Denies: Hx Asthma, Hx COPD, Hx Sleep Apnea Neurological Medical History: Denies: Hx Seizures Endocrine Medical History: Reports: Hx Hypothyroidism. Denies: Hx Diabetes Mellitus Type 1, Hx Diabetes Mellitus Type 2, Hx Hyperthyroidism Renal/ Medical History: Denies: Hx Peritoneal Dialysis Malignancy Medical History: Reports: Hx Skin Cancer GI Medical History: Denies: Hx Cirrhosis, Hx Gastroesophageal Reflux Disease, Hx Hepatitis Musculoskeltal Medical History: Reports Hx Arthritis Psychiatric Medical History: Reports: Hx Depression Infectious Medical History: Denies: Hx C-Diff, Hx Hepatitis, Hx MRSA Past Surgical History: Reports: Hx Hysterectomy, Other - Bunionectomy both feet. Surgery for rectal carcinoma. Review of Systems - Review of Systems Constitutional: No symptoms reported EENT: No symptoms reported Cardiovascular: No symptoms reported Respiratory: No symptoms reported Gastrointestinal: No symptoms reported Genitourinary: No symptoms reported Female Genitourinary: No symptoms reported Musculoskeletal: See HPI Skin: No symptoms reported Hematologic/Lymphatic: No symptoms reported Neurological/Psychological: See HPI Physical Exam - Vital signs Vitals: Temp Pulse Resp BP Pulse Ox 98.2 F 94 16 169/87 H 98 01/06/17 23:22 01/06/17 23:22 01/06/17 23:22 01/06/17 23:22 01/06/17 23:22 Interpretation: Normal - General General appearance: Appears well, Alert In distress: None - Alert, smiling, well-appearing - HEENT Head: Normocephalic. No: Atraumatic - Scalp hematoma over the posterior parietal and superior occipital area, no open wounds, no other abnormalities Eyes: Normal Conjunctiva: Normal Extraocular movements intact: Yes Eyelashes: Normal Pupils: PERRL Sinus: Normal Nasal: Normal Mouth/Lips: Normal Mucous membranes: Normal Pharynx: Normal Neck: Normal - Respiratory Respiratory status: No respiratory distress Chest status: Nontender Breath sounds: Normal. No: Decreased air movement, Wheezing Chest palpation: Normal - Cardiovascular Rhythm: Regular. No: Tachycardia Heart sounds: Normal auscultation, S1 appreciated, S2 appreciated Murmur: No - Abdominal Inspection: Normal Distension: No distension Bowel sounds: Normal Tenderness: Nontender. No: Tender, Guarding - Back Back: Normal, Nontender. No: Tender - Extremities General upper extremity: Normal inspection, Normal strength, Other - Left arm PICC line in place General lower extremity: Other - Left foot wound VAC in place - Neurological Neuro grossly intact: Yes Cognition: Normal Orientation: AAOx4 [place] Coma Scale Eye Opening: Spontaneous [place] Coma Scale Verbal: Oriented [place] Coma Scale Motor: Obeys Commands [place] Coma Scale Total: 15 Speech: Normal Motor strength normal: LUE, RUE, LLE, RLE Sensory: Normal - Psychological Associated symptoms: Normal affect, Normal mood - Skin Skin Temperature: Warm Skin Moisture: Dry Skin Color: Normal Course - Re-evaluation Re-evalutation: Patient is smiling, conversational, joking. Alert and oriented. Scalp hematoma present but no open wounds, no other signs of injury. Unremarkable examination including neurological examination otherwise. CT of the head and neck with no acute abnormalities. Provided with head injury precautions, discussed return precautions, patient states satisfaction and agreement. - Vital Signs Vital signs: Temp Pulse Resp BP Pulse Ox 98.1 F 100 16 159/86 H 99 01/07/17 01:14 01/07/17 01:14 01/07/17 01:14 01/07/17 01:14 01/07/17 01:14 Discharge - Discharge Clinical Impression: Fall Qualifiers: Encounter type: initial encounter Qualified Code(s): W19.XXXA - Unspecified fall, initial encounter Head injury Qualifiers: Encounter type: initial encounter Qualified Code(s): S09.90XA - Unspecified injury of head, initial encounter Scalp hematoma Qualifiers: Encounter type: initial encounter Qualified Code(s): S00.03XA - Contusion of scalp, initial encounter Condition: Stable Disposition: HOME, SELF-CARE Additional Instructions: The CAT scan of the head and neck shows a scalp hematoma but no other abnormalities. Please follow the head injury precautions detailed below. Return to emergency department for any concerning symptoms. At this point, there is no evidence that your head injury is serious. Observation is necessary, however. Take only clear liquids for the first few hours, unless told otherwise by the doctor. If no pain medication was prescribed, you may take acetaminophen according to the directions on the bottle. Do not take any medication that may alter your level of alertness (unless you've discussed it with the doctor first) . Limit activity for the first 24 hours. Bed rest is best. During the first 24 hours, check to see approximately every two to three hours that the patient is easily arousable, responds normally, and can perform common tasks such as walking without difficulty. Contact your doctor or go to the hospital if any of the following things occur: Persistent vomiting, difficulty in arousing the patient, worsening or continued headache, or failure to improve as expected. Head injuries can cause symptoms that persist for a few days or even a few weeks. Forms: Elevated Blood Pressure
[2017-01-07] MEDS ORDERED: ACETAMINOPHEN 325 MG TABLET PO ONE (00:41)
[2017-01-07 01:30] VITALS: BP 159/86
== END 2017-01-07 01:15 | disposition home or self-care (01) ==
LOC: ER 23:14
DX: S00.03XA Contusion of scalp, initial encounter (principal); W05.0XXA Fall from non-moving wheelchair, initial encounter; I10 Essential (primary) hypertension; Z85.828 Personal history of other malignant neoplasm of skin
CPT/HCPCS: 70450; 72125; 99285

== ENCOUNTER → 2017-01-11 | Outpatient (CLI) | payer MEDICARE | LOC: RAD 14:46 | PROVIDERS: ATTEND Preventive Medicine Undersea and Hyperbaric Medicine | DX: L89.894 Pressure ulcer of other site, stage 4 (principal) ==

== ENCOUNTER → 2017-01-18 | Outpatient (CLI) | payer MEDICARE ==
--- NOTE | 2017-01-18 16:16 | XCELERA REPORT ---
[address] [id number] Lower Extremity Arterial Evaluation Name: MARIO MONTELONGO Age: 71 yrs Gender: Female : 1945 Patient Status: Outpatient Patient Location: Study Date: 01/18/2017 08:54 AM Procedure: A color flow and duplex scan of the lower extremity arteries was performed bilaterally with velocity and waveform anaylsis. Ankle brachial indicies performed. Reason For Study: ULCER Ordering Physician: KAJAL BAÑUELOS Performed By: Donnie Lazo Measurements and Calculations Right Left CAR SUPPLIER PSV 138.3 115.2 cm/sec Prox PFA PSV -67.8 -70.5 cm/sec Dist SFA PSV -82.7 -65.9 cm/sec Dist Pop A PSV 59.8 59.8 cm/sec Dist JASON PSV 70.3 93.2 cm/sec Dist GRAPPLE YARDER OPERATOR PSV 69.4 91.5 cm/sec Bryan Pedis PSV -43.5 -90.4 cm/sec Right Side Arterial Evaluation Normal velocity and triphasic waveforms noted from the Common Femoral artery to the infrageniculate vessels. 0 % stenosis noted. Ankle Brachial index is 1.21. Left Side Arterial Evaluation Normal velocity and triphasic waveforms noted from the Common Femoral artery to the infrageniculate vessels. 0 % stenosis noted. Ankle Brachial index is 1.27. Interpretation Summary No hemodynamically significant lesions in the bilateral lower extremities, on duplex imaging, at rest. : KAJAL BAÑUELOS > Zeeshan Kessler
--- NOTE | 2017-01-19 08:14 | XCELERA REPORT ---
[address] [address] Lower Extremity Venous Evaluation Name: MARIO MONTELONGO Age: 71 yrs Gender: Female : 1945 Patient Status: Outpatient Patient Location: Study Date: 01/18/2017 09:06 AM Procedure: A bilateral duplex scan of the lower extremity veins was performed. The evaluation included responses to compression and other maneuvers with patient in the supine and standing positions to assess venous insufficiency. Reason For Study: ULCER Ordering Physician: KAJAL BAÑUELOS Performed By: Donnie Lazo Right Sided Venous Evaluation Deep venous system evaluatiion shows patent veins with no obstruction or significant reflux identified. Sapheno Femoral junction: no reflux. Femoral vein reflux: no reflux. Greater Saphenous vein, Proximal thigh: reflux: no reflux. Greater Saphenous vein, Distal thigh: reflux: no reflux. Greater Saphenous vein, Proximal below knee: reflux: no reflux. No significant Perforators identified. Left Sided Venous Evaluation Deep venous system evaluatiion shows patent veins with no obstruction or significant reflux identified. Sapheno Femoral junction: no reflux. Femoral vein reflux: no reflux. Greater Saphenous vein, Proximal thigh: reflux: no reflux. Greater Saphenous vein, Distal thigh: reflux: no reflux. Greater Saphenous vein, Proximal below knee: reflux: no reflux. No significant Perforators identified. Interpretation Summary No duplex evidence of DVT or obstruction in the bilateral lower extremities. No significant reflux identified. : KAJAL BAÑUELOS > Zeeshan Kessler
== END ==
LOC: SP 08:37
PROVIDERS: ATTEND Preventive Medicine Undersea and Hyperbaric Medicine
DX: L89.894 Pressure ulcer of other site, stage 4 (principal)
CPT/HCPCS: 93925; 93970

== ENCOUNTER → 2017-02-14 | Outpatient (CLI) | payer MEDICARE ==
[2017-02-14 14:49] LABS: ALANINE AMINOTRANSFERASE 27 U/L (9-52); ALBUMIN 3.6 g/dL (3.5-5.0); ALKALINE PHOSPHATASE 106 U/L (38-126); ANION GAP 13 (5-19); ASPARTATE AMINO TRANSFERASE 19 U/L (14-36); BILIRUBIN,DIRECT 0.3 mg/dL (0.0-0.4); BILIRUBIN,TOTAL 0.4 mg/dL (0.2-1.3); BLOOD UREA NITROGEN 18 mg/dL (7-20); CALCIUM 9.7 mg/dL (8.4-10.2); CARBON DIOXIDE 25 mmol/L (22-30); CHLORIDE 104 mmol/L (98-107); CREATININE RESULT 0.86 mg/dL (0.52-1.25); GLUCOSE 154 mg/dL (75-110); POTASSIUM 4.4 mmol/L (3.6-5.0); SODIUM 141.5 mmol/L (137-145); TOTAL PROTEIN 6.9 g/dL (6.3-8.2)
[2017-02-14 15:09] LABS: C-REACTIVE PROTEIN 30.2 mg/L (<10.0)
== END ==
LOC: WC 14:14
PROVIDERS: ATTEND Preventive Medicine Undersea and Hyperbaric Medicine
DX: L89.894 Pressure ulcer of other site, stage 4 (principal)
CPT/HCPCS: 36415; 80053; 81001; 86140; 87086; 87088; 87186

== ENCOUNTER → 2017-02-14 | Outpatient (CLI) | payer MEDICARE, OTHER ==
--- NOTE | 2017-02-14 15:08 | RADIOLOGY REPORT (SQ) ---
EXAM DESCRIPTION: FOOT LEFT COMPLETE COMPLETED DATE/TIME: 02/14/2017 2:52 pm REASON FOR STUDY: PRESSURE ULCER OF OTHER SITE, STAGE 4 L89.894 PRESSURE ULCER OF OTHER SITE, STAGE 4 COMPARISON: 12/18/2016, 01/11/2017 NUMBER OF VIEWS: Three views. TECHNIQUE: AP, lateral and oblique radiographic images acquired of the left foot. LIMITATIONS: None. FINDINGS: Bones are diffusely osteoporotic There is a soft tissue ulcer along the plantar medial aspect of the 1st metatarsophalangeal joint. On today's study, heterotopic bone at the 1st metatarsophalangeal joint is no longer evident. There is widening of the 1st metatarsophalangeal joint space, and either partial resection or resorption of the 1st metatarsal head and medial sesamoid bone. Articular surface irregularity and bony spurring base left 1st toe proximal phalanx. Old healed fractures of the 2nd 3rd and 4th metatarsals. There is a healing subacute 5th metatarsal fracture, new compared to 01/11/2017. Stable bony spurring at the 1st and 2nd tarsometatarsal joints, stable plantar calcaneal spur. IMPRESSION: Change in appearance of the left 1st metatarsophalangeal joint. The 1st metatarsal head and medial sesamoid bones have been resected. There is joint space widening. Plantar ulcer at the 1st metatarsophalangeal joint region Subacute healing fracture 5th metatarsal head Old 2nd 3rd and 4th metatarsal fractures, healed. TECHNICAL DOCUMENTATION: JOB ID: [id number] [employer]- All Rights Reserved
== END ==
LOC: RAD 14:27
PROVIDERS: ATTEND Preventive Medicine Undersea and Hyperbaric Medicine
DX: L89.894 Pressure ulcer of other site, stage 4 (principal)

== ENCOUNTER → 2017-03-06 | Outpatient (CLI) | payer MEDICARE ==
--- NOTE | 2017-03-06 17:07 | RADIOLOGY REPORT (SQ) ---
EXAM DESCRIPTION: CHEST PA/LATERAL COMPLETED DATE/TIME: 03/06/2017 4:38 pm REASON FOR STUDY: PRE OP COMPARISON: None. EXAM PARAMETERS: NUMBER OF VIEWS: two views TECHNIQUE: Digital Frontal and Lateral radiographic views of the chest acquired. RADIATION DOSE: NA LIMITATIONS: none FINDINGS: LUNGS AND PLEURA: No opacities, masses or pneumothorax. No pleural effusion. MEDIASTINUM AND HILAR STRUCTURES: No masses or contour abnormalities. HEART AND VASCULAR STRUCTURES: Heart normal size. No evidence for failure. BONES: Old healed right humeral neck fracture. Advanced arthritis both shoulders. Old healed bilate ral rib fractures. HARDWARE: None in the chest. OTHER: No other significant finding. IMPRESSION: No acute infiltrates. No cardiomegaly. TECHNICAL DOCUMENTATION: JOB ID: [id number] [employer]- All Rights Reserved
--- NOTE | 2017-03-06 17:13 | RADIOLOGY REPORT (SQ) ---
EXAM DESCRIPTION: FOOT LEFT COMPLETE COMPLETED DATE/TIME: 03/06/2017 4:38 pm REASON FOR STUDY: PRESSURE ULCER OF OTHER SITE, STAGE 4 L89.894 PRESSURE ULCER OF OTHER SITE, STAGE 4 Z01.818 ENCOUNTER FOR OTHER PREPROCEDURAL EXAMINATION COMPARISON: 12/18/2016, 01/11/2017, 02/14/2017 NUMBER OF VIEWS: Three views. TECHNIQUE: AP, lateral and oblique radiographic images acquired of the left foot. LIMITATIONS: Fiberglass boot FINDINGS: MINERALIZATION: Osteopenic BONES: Bony resorption of the left 1st metatarsal head and base of the proximal phalanx 5th similar c ompared to previous studies. There is radiopaque ointment in a soft tissue ulcer along the medial le ft foot at the 1st metatarsophalangeal joint region. Old healed 2nd and 3rd and 4th metatarsal fractures. Healed 5th metatarsal head fracture. SOFT TISSUES: No soft tissue swelling. No foreign body. Radiopaque ointment and a soft tissue ulcer along the medial upper the 1st metatarsophalangeal joint region OTHER: No other significant finding. IMPRESSION: Essentially no change from 02/14/2017 TECHNICAL DOCUMENTATION: JOB ID: [id number] [employer]- All Rights Reserved
== END ==
LOC: OD 15:59
PROVIDERS: ATTEND Preventive Medicine Undersea and Hyperbaric Medicine
DX: Z01.818 Encounter for other preprocedural examination (principal); L89.894 Pressure ulcer of other site, stage 4
CPT/HCPCS: 71020

== ENCOUNTER 2017-12-06 16:22 | Inpatient (IN) | payer MEDICARE ==
[2017-12-06] MEDS ORDERED: NORMAL SALINE 1000 ML 1,000 ML IV ONE (17:50)
[2017-12-06] MEDS ORDERED: ONDANSETRON HCL INJ/PF 4 MG/2 ML SDV IV ONE (17:51)
--- NOTE | 2017-12-06 18:01 | ER Document Report ---
Addendum entered and electronically signed by PHIL FAIRBANKS MD 12/07/17 04:25: Discharge - Discharge Clinical Impression: Abnormal liver function tests, Alcohol abuse Diarrhea Qualifiers: Diarrhea type: unspecified type Qualified Code(s): R19.7 - Diarrhea, unspecified Hypotension Qualifiers: Hypotension type: other hypotension type Qualified Code(s): I95.89 - Other hypotension Urinary tract infection Qualifiers: Urinary tract infection type: acute cystitis Hematuria presence: without hematuria Qualified Code(s): N30.00 - Acute cystitis without hematuria Condition: Stable Disposition: ADMITTED OBSERVATION Admitting Provider: Hospitalist Unit Admitted: Telemetry Prescriptions: Nitrofurantoin/Nitrofuran Mac [Macrobid 100 mg Capsule] 100 mg PO BID #20 capsule Promethazine HCl [Phenergan 25 mg Tablet] 25 - 50 mg PO ASDIR PRN #12 tablet PRN Reason: For Nausea/Vomiting Referrals: NARCISO CHICAS MD [Primary Care Provider] - Follow up as needed Addendum entered and electronically signed by PHIL FAIRBANKS MD 12/06/17 22:50: Discharge - Discharge Clinical Impression: Abnormal liver function tests, Alcohol abuse Diarrhea Qualifiers: Diarrhea type: unspecified type Qualified Code(s): R19.7 - Diarrhea, unspecified Hypotension Qualifiers: Hypotension type: other hypotension type Qualified Code(s): I95.89 - Other hypotension Urinary tract infection Qualifiers: Urinary tract infection type: acute cystitis Hematuria presence: without hematuria Qualified Code(s): N30.00 - Acute cystitis without hematuria Condition: Stable Disposition: HOME, SELF-CARE Instructions: Liver Function Abnormality ([facility]), Nitrofurantoin ([facility]), Rocephin ([facility]), Urinary Tract Infection ([facility]) Additional Instructions: STOP YOUR LISINOPRIL (BLOOD PRESSURE MEDICATION), DO NOT RESUME UNTIL TOLD TO DO SO BY YOUR PRIMARY CARE PROVIDER. DRINK PLENTY OF WATER. TAKE MACROBID DIRECTED, BEGINNING TOMORROW. YOU MAY TAKE ZOFRAN OR PHENERGAN IF NEEDED FOR NAUSEA CONTROL. CONTINUE ALL OTHER MEDS USUAL. STOP DRINKING ALCOHOL, SEEK HELP FROM YOUR PRIMARY CARE PROVIDER IF NEEDED. FOLLOW UP WITH YOUR PRIMARY CARE PROVIDER, YOU MAY NEED TO BE REFERRED FOR COLONOSCOPY. Prescriptions: Nitrofurantoin/Nitrofuran Mac [Macrobid 100 mg Capsule] 100 mg PO BID #20 capsule Ondansetron [Zofran Odt 4 mg Tablet] 1 - 2 tab PO Q4H #10 tab.rapdis Promethazine HCl [Phenergan 25 mg Tablet] 25 - 50 mg PO ASDIR PRN #12 tablet PRN Reason: For Nausea/Vomiting Referrals: NARCISO CHICAS MD [Primary Care Provider] - Follow up as needed Addendum entered and electronically signed by PHIL FAIRBANKS MD 12/06/17 22:26: Discharge - Discharge Clinical Impression: Abnormal liver function tests, Alcohol abuse Diarrhea Qualifiers: Diarrhea type: unspecified type Qualified Code(s): R19.7 - Diarrhea, unspecified Hypotension Qualifiers: Hypotension type: other hypotension type Qualified Code(s): I95.89 - Other hypotension Urinary tract infection Qualifiers: Urinary tract infection type: acute cystitis Hematuria presence: without hematuria Qualified Code(s): N30.00 - Acute cystitis without hematuria Condition: Stable Disposition: HOME, SELF-CARE Instructions: Liver Function Abnormality ([facility]), Nitrofurantoin ([facility]), Rocephin ([facility]), Urinary Tract Infection ([facility]) Additional Instructions: STOP YOUR LISINOPRIL (BLOOD PRESSURE MEDICATION), DO NOT RESUME UNTIL TOLD TO DO SO BY YOUR PRIMARY CARE PROVIDER. TAKE MACROBID DIRECTED, BEGINNING TOMORROW. YOU MAY TAKE ZOFRAN IF NEEDED FOR NAUSEA CONTROL. CONTINUE ALL OTHER MEDS USUAL. STOP DRINKING ALCOHOL, SEEK HELP FROM YOUR PRIMARY CARE PROVIDER IF NEEDED. FOLLOW UP WITH YOUR PRIMARY CARE PROVIDER, YOU MAY NEED TO BE REFERRED FOR COLONOSCOPY. Prescriptions: Nitrofurantoin/Nitrofuran Mac [Macrobid 100 mg Capsule] 100 mg PO BID #20 capsule Ondansetron [Zofran Odt 4 mg Tablet] 1 - 2 tab PO Q4H #10 tab.rapdis Referrals: NARCISO CHICAS MD [Primary Care Provider] - Follow up as needed Original Note: ED GI/ <PHIL FAIRBANKS - Last Filed: 12/07/17 04:24> - General TRAVEL OUTSIDE OF THE [place] IN LAST 30 DAYS: No <JEN MARTINEZ - Last Filed: 12/07/17 09:31> - General Chief Complaint: Diarrhea Stated Complaint: HIGH BLOOD PRESSURE Time Seen by Provider: 12/06/17 17:49 Notes: Patient was at her local primary care doctor's office when her blood pressure was noted to be low and EMS was called to transport the patient here. Patient was seeing her doctor because she has been having diarrhea and vomiting for over a week and had seen some blood in her stools a couple of weeks ago, which resolved and she has not seen since. She has a history of surgery and radiation and chemotherapy for anal cancer in 2010, and is concerned that she may have recurrent problems related to that cancer. She has not followed up as closely as she should have, last time being checked was about 2 years ago. Patient denies any significant abdominal pains. Denies chest pain. Denies shortness of breath or difficulty breathing. Unaware of any fever. Has not had any abdominal surgeries. Denies smoking. Admits to drinking alcohol on a daily basis. Not on any recent antibiotics. (JEN MARTINEZ) - Related Data Allergies/Adverse Reactions: Opioids - Morphine Analogues Adverse Reaction (Verified 12/18/16 22:39) ITCHING; NO RASH Past Medical History - Social History Smoking Status: Unknown if Ever Smoked Cigarette use (# per day): No Frequency of alcohol use: Drinks alcohol daily. Lives with: Alone Family History: Reviewed & Not Pertinent Patient has suicidal ideation: No Patient has homicidal ideation: No - Past Medical History Cardiac Medical History: Reports: Hx Hypercholesterolemia, Hx Hypertension Endocrine Medical History: Reports: Hx Hypothyroidism. Denies: Hx Diabetes Mellitus Type 1, Hx Diabetes Mellitus Type 2 Malignancy Medical History: Reports: Hx Skin Cancer Musculoskeltal Medical History: Reports Hx Arthritis Psychiatric Medical History: Reports: Hx Depression Past Surgical History: Reports: Hx Hysterectomy, Hx Rectal Surgery - For, Other - Bunionectomy both feet - Immunizations Hx Diphtheria, Pertussis, Tetanus Vaccination: Yes <JEN MARTINEZ - Last Filed: 12/07/17 09:31> Review of Systems <PHIL FAIRBANKS - Last Filed: 12/07/17 04:24> <JEN MARTINEZ - Last Filed: 12/07/17 09:31> - Review of Systems Notes: REVIEW OF SYSTEMS: CONSTITUTIONAL : Denies fever. EENT: Denies eye, ear, nose or mouth or throat pain or other symptoms. CARDIOVASCULAR: Denies chest pain. RESPIRATORY: Denies cough, chest congestion, or shortness of breath. GASTROINTESTINAL: Denies abdominal pain but has had nausea, vomiting, and diarrhea. See HPI. GENITOURINARY: Denies difficulty or painful urinating, urinary frequency, blood in urine. MUSCULOSKELETAL: Denies back or neck pain. Denies joint pain or swelling. SKIN: Denies rash or skin lesions. NEUROLOGICAL: Denies LOC or altered mental status. Denies headache. Denies sensory loss or motor deficits. ALL OTHER SYSTEMS REVIEWED AND NEGATIVE. (JEN MARTINEZ) Physical Exam <PHIL FAIRBANKS - Last Filed: 12/07/17 04:24> - Vital signs Interpretation: Normal, Tachycardic - Mild <JEN MARTINEZ - Last Filed: 12/07/17 09:31> - Vital signs Vitals: Temp Pulse Resp BP Pulse Ox 98.5 F 110 H 20 96/70 L 98 12/06/17 17:16 12/06/17 17:16 12/06/17 17:16 12/06/17 17:16 12/06/17 17:16 - Notes Notes: PHYSICAL EXAMINATION: GENERAL: Well-appearing, in no acute distress. Blood pressures running in the 60s, 80s, 90s systolic at the doctor's office and in route here and upon arrival here. HEAD: Atraumatic, normocephalic. EYES: Pupils equal round and reactive to light, extraocular movements intact. ENT: oropharynx clear without exudates. Moist mucous membranes. NECK: Normal range of motion, supple. LUNGS: Breath sounds clear and equal bilaterally. HEART: Regular rate and rhythm without murmurs. ABDOMEN: Soft, nontender. No guarding or rebound. No masses. Rectal exam deferred because no rectal bleeding for over 2 weeks, according to the patient. BACK: No tenderness throughout entire back. EXTREMITIES: Normal range of motion without pain. NEUROLOGICAL: Normal speech, normal gait. Normal sensory, motor, and reflex exams. Awake, alert, and oriented x3. Cranial nerves normal. PSYCH: Normal mood, normal affect. SKIN: Warm, dry, no rashes. (JEN MARTINEZ) Course - Laboratory Result Diagrams: 12/06/17 18:35 12/06/17 18:35 <PHIL FAIRBANKS - Last Filed: 12/07/17 04:24> - Laboratory Result Diagrams: 12/06/17 18:35 12/06/17 18:35 <JEN MARTINEZ - Last Filed: 12/07/17 09:31> - Re-evaluation Re-evalutation: 12/06/17 18:07 Labs will be checked. Patient will be given a liter of normal saline. She received 500 mL IV in route here with EMS. (JEN MARTINEZ) - Vital Signs Vital signs: Temp Pulse Resp BP Pulse Ox 98.6 F 76 18 80/54 L 98 12/07/17 07:52 12/07/17 07:52 12/07/17 07:52 12/07/17 07:52 12/07/17 07:52 - Laboratory Laboratory results interpreted by me: 12/06/17 12/06/17 12/06/17 18:35 18:35 20:29 RBC 3.51 L Hct 35.2 L MCV 100 H MCH 34.8 H Seg Neutrophils % 81.2 H Lymphocytes % 6.1 L Absolute Lymphocytes 0.4 L Sodium 126.7 L Chloride 91 L Glucose 115 H Serum Osmolality Magnesium Total Bilirubin 1.6 H Direct Bilirubin 1.0 H AST 256 H ALT 149 H Alkaline Phosphatase 145 H Creatine Kinase Total Protein 5.8 L Albumin 3.3 L TSH Urine Protein 30 H Urine Ketones TRACE H Urine Blood SMALL H Urine Urobilinogen 2.0 H Ur Leukocyte Esterase LARGE H Urine Osmolality 12/06/17 12/07/17 12/07/17 20:29 03:50 03:50 RBC Hct MCV MCH Seg Neutrophils % Lymphocytes % Absolute Lymphocytes Sodium Chloride Glucose Serum Osmolality Magnesium 1.2 L* Total Bilirubin Direct Bilirubin AST ALT Alkaline Phosphatase Creatine Kinase Total Protein Albumin TSH 14.50 H Urine Protein Urine Ketones Urine Blood Urine Urobilinogen Ur Leukocyte Esterase Urine Osmolality 200 L 12/07/17 12/07/17 03:50 03:50 RBC Hct MCV MCH Seg Neutrophils % Lymphocytes % Absolute Lymphocytes Sodium Chloride Glucose Serum Osmolality 268 L Magnesium Total Bilirubin Direct Bilirubin AST ALT Alkaline Phosphatase Creatine Kinase < 20 L Total Protein Albumin TSH Urine Protein Urine Ketones Urine Blood Urine Urobilinogen Ur Leukocyte Esterase Urine Osmolality Discharge <PHIL FAIRBANKS - Last Filed: 12/07/17 04:24> <JEN MARTINEZ - Last Filed: 12/07/17 09:31> - Discharge Clinical Impression: Abnormal liver function tests, Alcohol abuse Diarrhea Qualifiers: Diarrhea type: unspecified type Qualified Code(s): R19.7 - Diarrhea, unspecified Hypotension Qualifiers: Hypotension type: other hypotension type Qualified Code(s): I95.89 - Other hypotension Urinary tract infection Qualifiers: Urinary tract infection type: acute cystitis Hematuria presence: without hematuria Qualified Code(s): N30.00 - Acute cystitis without hematuria Condition: Stable Disposition: ADMITTED OBSERVATION
[2017-12-06 18:46] LABS: ABSOLUTE BASOPHILS # (AUTO) 0.1 10^3/uL (0.0-0.2); ABSOLUTE LYMPHOCYTES (AUTO) 0.4 10^3/uL (0.5-4.7); ABSOLUTE MONOCYTES (AUTO) 0.8 10^3/uL (0.1-1.4); ABSOLUTE NEUT (AUTO) 5.7 10^3/uL (1.7-8.2); BASOPHILS % (AUTO) 0.9 % (0-2); EOSINOPHILS % (AUTO) 0.1 % (0-6); HEMATOCRIT 35.2 % (36.0-47.0); HEMOGLOBIN 12.2 g/dL (12.0-15.5); LYMPHOCYTES % (AUTO) 6.1 % (13-45); MEAN CORPUSCULAR HEMOGLOBIN 34.8 pg (27.0-33.4); MEAN CORPUSCULAR HGB CONC 34.6 g/dL (32.0-36.0); MEAN CORPUSCULAR VOLUME 100 fl (80-97); MONOCYTES % (AUTO) 11.7 % (3-13); PLATELET COUNT 253 10^3/uL (150-450); RED BLOOD COUNT 3.51 10^6/uL (3.72-5.28); RED CELL DISTRIBUTION WIDTH 13.8 % (11.5-14.0); SEGMENTED NEUTROPHILS % (AUTO) 81.2 % (42-78); TOTAL CELLS COUNTED % (AUTO) 100 %
[2017-12-06 19:02] LABS: ALANINE AMINOTRANSFERASE 149 U/L (9-52); ALBUMIN 3.3 g/dL (3.5-5.0); ALKALINE PHOSPHATASE 145 U/L (38-126); ANION GAP 13 (5-19); ASPARTATE AMINO TRANSFERASE 256 U/L (14-36); BILIRUBIN,TOTAL 1.6 mg/dL (0.2-1.3); BLOOD UREA NITROGEN 13 mg/dL (7-20); CALCIUM 8.4 mg/dL (8.4-10.2); CARBON DIOXIDE 23 mmol/L (22-30); CHLORIDE 91 mmol/L (98-107); GLUCOSE 115 mg/dL (75-110); LIPASE 58.2 U/L (23-300); SODIUM 126.7 mmol/L (137-145); TOTAL PROTEIN 5.8 g/dL (6.3-8.2)
[2017-12-06 20:59] LABS: APPEARANCE,URINE CLOUDY; BILIRUBIN,URINE NEGATIVE (NEGATIVE); COLOR,URINE AMBER; GLUCOSE, URINE NEGATIVE (NEGATIVE); KETONES,URINE TRACE mg/dL (NEGATIVE); LEUKOCYTE ESTERASE,URINE LARGE (NEGATIVE); NITRITE,URINE NEGATIVE (NEGATIVE); PROTEIN,URINE 30 mg/dL (NEGATIVE); URINE SPECIFIC GRAVITY 1.006
[2017-12-06] MEDS ORDERED: CEFTRIAXONE 1 GM/D5W RTU 1 GM/50 ML RTUPB IV ONE (21:05)
[2017-12-06] MEDS ORDERED: CEFTRIAXONE SODIUM 1,000 MG in NORMAL SALINE 100 ML IV ONE (21:45)
[2017-12-06] MEDS ORDERED: ONDANSETRON ODT 4 MG TAB (6 TAB/ER DISP) PO PRN (22:24)
[2017-12-07] MEDS ORDERED: ONDANSETRON HCL INJ/PF 4 MG/2 ML SDV IV PRN ×2 (04:26→15:00)
[2017-12-07] MEDS ORDERED: MAG HYDROX/AL HYDROX/SIMETH SUSP 30 ML UDCUP PO PRN (04:26)
[2017-12-07] MEDS ORDERED: THIAMINE HCL 100 MG, FOLIC ACID 1 MG in NORMAL SALINE 250 ML IV ONE ×2 (04:26→05:30)
[2017-12-07] MEDS ORDERED: IPRATROPIUM/ALBUTEROL 0.5-2.5 MG/3 ML AMPUL NEB PRN (04:26)
[2017-12-07 05:19] LABS: URINE AMPHETAMINES SCREEN NEGATIVE; URINE BARBITURATES SCREEN NEGATIVE; URINE BENZODIAZEPINES SCREEN NEGATIVE; URINE COCAINE SCREEN NEGATIVE; URINE MARIJUANA (THC) SCREEN NEGATIVE; URINE METHADONE SCREEN NEGATIVE; URINE PHENCYCLIDINE SCREEN NEGATIVE
[2017-12-07] MEDS ORDERED: FOLIC ACID INJ 5 MG/1 ML 10 ML VIAL ONE (05:19)
[2017-12-07] MEDS ORDERED: THIAMINE HCL INJ 200 MG/2 ML VIAL ONE (05:19)
[2017-12-07 05:21] LABS: PHOSPHORUS 3.5 mg/dL (2.5-4.5)
[2017-12-07] MEDS ORDERED: TRAZODONE HCL 50 MG TABLET PO ONE (05:23)
[2017-12-07] MEDS: HEPARIN SOD (PORCINE) 5,000 UNIT/ML 1 ML SYRINGE SUBCUT SCH ×3 (05:30→21:34)
--- NOTE | 2017-12-07 06:12 | PDOC H&P ---
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 With a past medical history of rectal carcinoma status post resection and cure, hypertension and alcohol dependence who presents with 2 weeks of diarrhea. She admits nausea with vomiting of gastric content, denies fever suspect meal or new medications. She is unable to recall her medications with exception to Hyzaar. In the emergency room she is found to have hyponatremia of 126, elevated LFTs and sodium of 5.0. She denies history of Hyzaar adverse reaction. She receives Zofran and IV saline and referred to the hospitalist for admission. Past Medical History Cardiac Medical History: Reports: Hyperlipidema, Hypertension Denies: Congestive Heart Failure, DVT, Myocardial Infarction, Pulmonary Embolism Pulmonary Medical History: Denies: Asthma, Chronic Obstructive Pulmonary Disease (COPD), Sleep Apnea Neurological Medical History: Denies: Seizures Endocrine Medical History: Reports: Hypothyroidism Denies: Diabetes Mellitus Type 1, Diabetes Mellitus Type 2, Hyperthyroidism Malignancy Medical History: Reports: Skin Cancer GI Medical History: Denies: Cirrhosis, Gastroesophageal Reflux Disease, Hepatitis Musculoskeltal Medical History: Reports: Arthritis Psychiatric Medical History: Reports: Depression Infectious Medical History: Denies: Clostridium Difficile, Methicillin-Resistant Staph Aureus Past Surgical History Past Surgical History: Reports: Hysterectomy, Other - Bunionectomy both feet Social History Information Source: Patient Lives with: Alone Smoking Status: Unknown if Ever Smoked Frequency of Alcohol Use: Heavy - 1 bottle of wine per day, denies seizure or blackout or DTs Hx Recreational Drug Use: No Drugs: None Hx Prescription Drug Abuse: No - Advance Directive Resuscitation Status: Full Code Family History Family History: Hypertension Parental Family History Reviewed: Yes Children Family History Reviewed: Yes Sibling(s) Family History Reviewed.: Yes Medication/Allergy Home Medications: Levothyroxine Sodium [Synthroid] 50 mcg PO DAILY 12/19/16 Venlafaxine HCl [Effexor Xr] 150 mg PO DAILY 12/19/16 Acetaminophen [Tylenol 325 mg Tablet] 650 mg PO Q8HP PRN #0 tablet 12/23/16 Cetirizine HCl [Zyrtec 10 mg Tablet] 10 mg PO DAILY tablet 12/23/16 Docusate Sodium [Colace 100 mg Capsule] 100 mg PO BID capsule 12/23/16 Ertapenem Sodium [Invanz Inj 1 gm Vial] 1 gm IV DAILY #41 vial 12/23/16 Folic Acid [Folvite 1 mg Tablet] 1 mg PO DAILY tablet 12/23/16 Hydroxyzine HCl [Atarax 10 mg Tablet] 10 mg PO Q6HP PRN tablet 12/23/16 Ketorolac Tromethamine [Toradol 10 mg Tablet] 10 mg PO Q6HP PRN tablet Lisinopril [Prinivil 10 mg Tablet] 20 mg PO Q12 tablet 12/23/16 Multivitamin [Tab-A-Karly (Multiple Vitamin) Tablet] 1 tab PO DAILY tablet 12/23 Olopatadine HCl [Patanol 0.1% Oph Soln 5 ml] 1 drop OU DAILY bottle 12/23/16 Thiamine HCl [Thiamine 100 mg Tablet] 100 mg PO DAILY tablet 12/23/16 Nitrofurantoin/Nitrofuran Mac [Macrobid 100 mg Capsule] 100 mg PO BID #20 capsule 12/06/17 Promethazine HCl [Phenergan 25 mg Tablet] 25 - 50 mg PO ASDIR PRN #12 tablet Allergies/Adverse Reactions: Opioids - Morphine Analogues Adverse Reaction (Verified 12/18/16 22:39) ITCHING; NO RASH Review of Systems Constitutional: PRESENT: as per HPI, anorexia, fatigue. ABSENT: fever(s), headache(s) Eyes: ABSENT: visual disturbances Ears: ABSENT: hearing changes Cardiovascular: ABSENT: chest pain, dyspnea on exertion, edema, orthropnea, palpitations Respiratory: ABSENT: cough, hemoptysis Gastrointestinal: PRESENT: as per HPI, diarrhea, heartburn, nausea, vomiting. ABSENT: abdominal pain, bloating, coffee ground emesis, constipation, dysphagia , hematochezia Genitourinary: ABSENT: dysuria, hematuria Musculoskeletal: ABSENT: joint swelling Integumentary: ABSENT: rash, wounds Neurological: ABSENT: abnormal gait, abnormal speech, confusion, dizziness, focal weakness, syncope Psychiatric: PRESENT: other Endocrine: ABSENT: cold intolerance, heat intolerance, polydipsia, polyuria Hematologic/Lymphatic: ABSENT: easy bleeding, easy bruising Physical Exam Vital Signs: Temp Pulse Resp BP Pulse Ox 97.9 F 86 19 100/55 L 100 12/06/17 23:02 03/29/18 02:44 12/07/17 05:24 12/07/17 05:24 12/07/17 05:24 General appearance: PRESENT: no acute distress, well-developed, well-nourished Head exam: PRESENT: atraumatic, normocephalic Eye exam: PRESENT: conjunctiva pink, EOMI, PERRLA. ABSENT: scleral icterus Ear exam: PRESENT: normal external ear exam Mouth exam: PRESENT: moist, tongue midline Neck exam: ABSENT: carotid bruit, JVD, lymphadenopathy, thyromegaly Respiratory exam: PRESENT: clear to auscultation tierra. ABSENT: rales, rhonchi, wheezes Cardiovascular exam: PRESENT: RRR. ABSENT: diastolic murmur, rubs, systolic murmur Pulses: PRESENT: normal dorsalis pedis pul Vascular exam: PRESENT: normal capillary refill GI/Abdominal exam: PRESENT: normal bowel sounds, soft. ABSENT: distended, guarding, mass, organolmegaly, rebound, tenderness Rectal exam: PRESENT: deferred Extremities exam: PRESENT: full ROM. ABSENT: calf tenderness, clubbing, pedal edema Neurological exam: PRESENT: alert, awake, oriented to person, oriented to place , oriented to time, oriented to situation, CN II-XII grossly intact. ABSENT: motor sensory deficit Psychiatric exam: PRESENT: appropriate affect, normal mood. ABSENT: homicidal ideation, suicidal ideation Skin exam: PRESENT: dry, intact, warm. ABSENT: cyanosis, rash Assessment & Plan - Diagnosis (1) Hyponatremia Is this a current diagnosis for this admission?: Yes Plan: Likely secondary to hydrochlorothiazide with mild hypovolemia. Hyzaar discontinued, normal saline reevaluate chemistry every 8 hours. Follow-up TSH, blood and urine osmolarity. (2) Hyperkalemia Is this a current diagnosis for this admission?: Yes Plan: Possibly secondary to losartan. Low potassium diet reevaluate chemistry consider Kayexalate. (3) Abnormal liver function tests Is this a current diagnosis for this admission?: Yes Plan: Secondary to alcohol versus Hyzaar. Discontinue both reevaluate LFTs (4) Diarrhea Qualifiers: Diarrhea type: unspecified type Qualified Code(s): R19.7 - Diarrhea, unspecified Is this a current diagnosis for this admission?: Yes Plan: Likely secondary to Hyzaar versus UTI. Trial clear liquids reevaluate output. (5) Hypertension Is this a current diagnosis for this admission?: Yes Plan: Avoid KADY, arm or thiazides, trial Norvasc given hypovolemia. (6) Urinary tract infection Qualifiers: Urinary tract infection type: acute cystitis Hematuria presence: without hematuria Qualified Code(s): N30.00 - Acute cystitis without hematuria Is this a current diagnosis for this admission?: Yes Plan: Empiric Rocephin reevaluate chemistry and CBC (7) Alcohol abuse Is this a current diagnosis for this admission?: Yes Plan: Thiamine and folate initiated as needed Ativan, consider discharge planning for outpatient rehab - Time Time Spent: 50 to 70 Minutes - Inpatient Certification Medical Necessity: Need Close Monitoring Due to Risk of Patient Decompensation
[2017-12-07] MEDS: NORMAL SALINE 1000 ML 1,000 ML IV SCH ×2 (06:29→13:01)
[2017-12-07] MEDS: MAGNESIUM SULFATE/D5W 1 GM/100 ML RTUPB IV SCH ×2 (06:56→08:01)
--- NOTE | 2017-12-07 07:51 | EKG REPORT ---
SEVERITY:- OTHERWISE NORMAL ECG - SINUS RHYTHM LEFT AXIS DEVIATION LOW VOLTAGE IN FRONTAL LEADS EARLY TRANSITION, CONSIDER [place]LD [place] : Confirmed by: Fer Kasper MD 07-Dec-2017 07:51:26
[2017-12-07] MEDS: DOCUSATE SODIUM 100 MG CAPSULE PO SCH ×2 (09:06→17:14)
[2017-12-07 13:13] LABS: ABSOLUTE EOSINOPHILS # (AUTO) 0.1 10^3/uL (0.0-0.6); ABSOLUTE LYMPHOCYTES (AUTO) 0.5 10^3/uL (0.5-4.7); ABSOLUTE MONOCYTES (AUTO) 0.7 10^3/uL (0.1-1.4); ABSOLUTE NEUT (AUTO) 3.2 10^3/uL (1.7-8.2); BASOPHILS % (AUTO) 0.7 % (0-2); EOSINOPHILS % (AUTO) 1.5 % (0-6); HEMATOCRIT 31.4 % (36.0-47.0); HEMOGLOBIN 10.8 g/dL (12.0-15.5); LYMPHOCYTES % (AUTO) 11.1 % (13-45); MEAN CORPUSCULAR HEMOGLOBIN 34.8 pg (27.0-33.4); MEAN CORPUSCULAR HGB CONC 34.3 g/dL (32.0-36.0); MEAN CORPUSCULAR VOLUME 102 fl (80-97); MONOCYTES % (AUTO) 16.1 % (3-13); PLATELET COUNT 195 10^3/uL (150-450); RED BLOOD COUNT 3.09 10^6/uL (3.72-5.28); RED CELL DISTRIBUTION WIDTH 13.7 % (11.5-14.0); SEGMENTED NEUTROPHILS % (AUTO) 70.6 % (42-78); TOTAL CELLS COUNTED % (AUTO) 100 %; WHITE BLOOD COUNT 4.5 10^3/uL (4.0-10.5)
[2017-12-07 13:34] LABS: ANION GAP 11 (5-19); BLOOD UREA NITROGEN 16 mg/dL (7-20); CALCIUM 7.9 mg/dL (8.4-10.2); CARBON DIOXIDE 18 mmol/L (22-30); CHLORIDE 100 mmol/L (98-107); GLUCOSE 136 mg/dL (75-110); POTASSIUM 4.3 mmol/L (3.6-5.0); SODIUM 128.8 mmol/L (137-145)
--- NOTE | 2017-12-07 14:27 | PDOC PROGRESS REPORT ---
Subjective Progress Note for:: 12/07/17 Subjective:: Doing better today. No nausea or vomiting. Denies abdominal pain. No fever or chills, no chest pain or shortness of breath or palpitations. Diarrhea has resolved. Tolerating clear liquid diet and would like to try regular diet. Reason For Visit: UTI, HYPOTENSION, HYPONATREMIA Physical Exam Vital Signs: Temp Pulse Resp BP Pulse Ox 98.6 F 76 18 87/44 L 98 12/07/17 07:52 12/07/17 09:37 12/07/17 09:37 12/07/17 09:02 12/07/17 09:37 Intake & Output 12/06/17 12/07/17 12/08/17 06:59 06:59 06:59 Intake Total 400 Balance 400 Weight 67.7 kg GEN: NAD, well-developed, well-nourished CV: RRR, NL S1S2 LUNGS: CTA bilaterally ABDOMEN Soft, NT, +BS EXTERMITIES: No e/c/c NEURO: Alert, oriented and 3, nonfocal Results Laboratory Results: 12/07/17 12:59 12/07/17 12:59 12/07/17 12/07/17 12:59 12:59 WBC 4.5 RBC 3.09 L Hgb 10.8 L Hct 31.4 L MCV 102 H MCH 34.8 H MCHC 34.3 RDW 13.7 Plt Count 195 Seg Neutrophils % 70.6 Lymphocytes % 11.1 L Monocytes % 16.1 H Eosinophils % 1.5 Basophils % 0.7 Absolute Neutrophils 3.2 Absolute Lymphocytes 0.5 Absolute Monocytes 0.7 Absolute Eosinophils 0.1 Absolute Basophils 0.0 Sodium 128.8 L Potassium 4.3 Chloride 100 Carbon Dioxide 18 L Anion Gap 11 BUN 16 Creatinine 1.23 Est GFR ( Amer) 52 L Est GFR (Non-Af Amer) 43 L Glucose 136 H Calcium 7.9 L Assessment & Plan - Diagnosis (1) Hyponatremia Is this a current diagnosis for this admission?: Yes Plan: Slightly improved. Continue normal saline for now. Patient does not appear volume overloaded. (2) Hypomagnesemia Is this a current diagnosis for this admission?: Yes Plan: Likely secondary to alcoholism. We will replete with IV magnesium and start magnesium oxide. (3) Abnormal liver function tests Is this a current diagnosis for this admission?: Yes Plan: Likely secondary to. Continue to trend. Alcohol cessation counseling. (4) Diarrhea Qualifiers: Diarrhea type: unspecified type Qualified Code(s): R19.7 - Diarrhea, unspecified Is this a current diagnosis for this admission?: Yes Plan: Improved. (5) Alcohol abuse Is this a current diagnosis for this admission?: Yes Plan: Alcohol cessation counseling. Continue thiamine, folic acid, Ativan as needed. Consider outpatient rehab referral at discharge. (6) Urinary tract infection Qualifiers: Urinary tract infection type: acute cystitis Hematuria presence: without hematuria Qualified Code(s): N30.00 - Acute cystitis without hematuria Is this a current diagnosis for this admission?: Yes Plan: Continue Rocephin, follow culture results.
[2017-12-07] MEDS ORDERED: MAGNESIUM SULFATE/D5W 1 GM/100 ML RTUPB IV SCH (14:45)
[2017-12-07] MEDS: LORAZEPAM 1 MG TABLET PO PRN (16:45)
[2017-12-07] MEDS: MAGNESIUM OXIDE 400 MG TABLET PO SCH (17:14)
[2017-12-07] MEDS: CEFTRIAXONE SODIUM 1,000 MG in NORMAL SALINE 100 ML IV SCH (21:33)
[2017-12-07] MEDS: BUSPIRONE HCL 10 MG TABLET PO SCH (21:37)
[2017-12-07] MEDS: TRAZODONE HCL 50 MG TABLET PO SCH (21:37)
[2017-12-07] MEDS ORDERED: CEFTRIAXONE 1 GM/D5W RTU 1 GM/50 ML RTUPB IV SCH (22:00)
[2017-12-07] MEDS ORDERED: TRAZODONE HCL 50 MG TABLET PO SCH (22:00)
[2017-12-08] MEDS: LORAZEPAM 1 MG TABLET PO PRN ×2 (00:24→21:17)
[2017-12-08] MEDS: HEPARIN SOD (PORCINE) 5,000 UNIT/ML 1 ML SYRINGE SUBCUT SCH ×3 (05:52→21:17)
[2017-12-08] MEDS: LEVOTHYROXINE SODIUM 0.05 MG TABLET PO SCH (05:52)
[2017-12-08 06:12] LABS: ABSOLUTE EOSINOPHILS # (AUTO) 0.1 10^3/uL (0.0-0.6); ABSOLUTE LYMPHOCYTES (AUTO) 0.3 10^3/uL (0.5-4.7); ABSOLUTE MONOCYTES (AUTO) 0.4 10^3/uL (0.1-1.4); ABSOLUTE NEUT (AUTO) 2.2 10^3/uL (1.7-8.2); BASOPHILS % (AUTO) 0.9 % (0-2); EOSINOPHILS % (AUTO) 3.1 % (0-6); HEMATOCRIT 28.5 % (36.0-47.0); MEAN CORPUSCULAR HEMOGLOBIN 35.3 pg (27.0-33.4); MEAN CORPUSCULAR HGB CONC 34.9 g/dL (32.0-36.0); MEAN CORPUSCULAR VOLUME 101 fl (80-97); MONOCYTES % (AUTO) 12.7 % (3-13); PLATELET COUNT 165 10^3/uL (150-450); RED BLOOD COUNT 2.82 10^6/uL (3.72-5.28); RED CELL DISTRIBUTION WIDTH 13.4 % (11.5-14.0); SEGMENTED NEUTROPHILS % (AUTO) 72.3 % (42-78); TOTAL CELLS COUNTED % (AUTO) 100 %; WHITE BLOOD COUNT 3.1 10^3/uL (4.0-10.5)
[2017-12-08 06:30] LABS: ALANINE AMINOTRANSFERASE 124 U/L (9-52); ALBUMIN 2.5 g/dL (3.5-5.0); ALKALINE PHOSPHATASE 151 U/L (38-126); ANION GAP 7 (5-19); ASPARTATE AMINO TRANSFERASE 196 U/L (14-36); BILIRUBIN,DIRECT 0.7 mg/dL (0.0-0.4); BILIRUBIN,TOTAL 1.1 mg/dL (0.2-1.3); BLOOD UREA NITROGEN 16 mg/dL (7-20); CALCIUM 8.1 mg/dL (8.4-10.2); CARBON DIOXIDE 24 mmol/L (22-30); CHLORIDE 102 mmol/L (98-107); GLUCOSE 96 mg/dL (75-110); POTASSIUM 4.1 mmol/L (3.6-5.0); SODIUM 132.9 mmol/L (137-145); TOTAL PROTEIN 4.5 g/dL (6.3-8.2)
[2017-12-08] MEDS: BUSPIRONE HCL 10 MG TABLET PO SCH ×2 (09:27→21:17)
[2017-12-08] MEDS: MAGNESIUM OXIDE 400 MG TABLET PO SCH ×2 (09:28→18:42)
[2017-12-08] MEDS: OXYBUTYNIN CHLORIDE 5 MG TABLET PO SCH (09:28)
[2017-12-08] MEDS: VENLAFAXINE HCL 75 MG CAP.SR.24H PO SCH (09:28)
[2017-12-08] MEDS: DOCUSATE SODIUM 100 MG CAPSULE PO SCH ×2 (09:29→18:42)
--- NOTE | 2017-12-08 17:29 | PDOC PROGRESS REPORT ---
Subjective Progress Note for:: 12/08/17 Subjective:: Doing better today. No more nausea or vomiting. Denies abdominal pain. No fever or chills, no chest pain or shortness of breath or palpitations. Diarrhea has resolved. Tolerating regular diet. Patient works as a substance abuse counselor. 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 rehab. States she drinks to help her sleep, that she can stop drinking anytime. Reason For Visit: UTI, HYPOTENSION, HYPONATREMIA Physical Exam Vital Signs: Temp Pulse Resp BP Pulse Ox 99.0 F 86 16 111/56 L 92 12/08/17 14:56 12/08/17 14:56 12/08/17 14:56 12/08/17 14:56 12/08/17 14:56 Intake & Output 12/07/17 12/08/17 12/09/17 06:59 06:59 06:59 Intake Total 3300 400 Balance 3300 400 Weight 67.7 kg 71 kg GEN: NAD, well-developed, well-nourished CV: RRR, NL S1S2 LUNGS: CTA bilaterally ABDOMEN Soft, NT, +BS EXTERMITIES: No e/c/c NEURO: Alert, oriented and 3, nonfocal Results Laboratory Results: 12/08/17 05:45 12/08/17 05:45 12/08/17 12/08/17 05:45 05:45 WBC 3.1 L RBC 2.82 L Hgb 10.0 L Hct 28.5 L MCV 101 H MCH 35.3 H MCHC 34.9 RDW 13.4 Plt Count 165 Seg Neutrophils % 72.3 Lymphocytes % 11.0 L Monocytes % 12.7 Eosinophils % 3.1 Basophils % 0.9 Absolute Neutrophils 2.2 Absolute Lymphocytes 0.3 L Absolute Monocytes 0.4 Absolute Eosinophils 0.1 Absolute Basophils 0.0 Sodium 132.9 L Potassium 4.1 Chloride 102 Carbon Dioxide 24 Anion Gap 7 BUN 16 Creatinine 1.17 Est GFR ( Amer) 55 L Est GFR (Non-Af Amer) 46 L Glucose 96 Calcium 8.1 L Magnesium 1.5 L Total Bilirubin 1.1 AST 196 H ALT 124 H Alkaline Phosphatase 151 H Total Protein 4.5 L Albumin 2.5 L Assessment & Plan - Diagnosis (1) Hyponatremia Is this a current diagnosis for this admission?: Yes Plan: Improved. Likely secondary to alcohol use. Continue normal saline for now. (2) Hypomagnesemia Is this a current diagnosis for this admission?: Yes Plan: Likely secondary to alcoholism. We will continue magnesium oxide. (3) Abnormal liver function tests Is this a current diagnosis for this admission?: Yes Plan: Likely secondary to alcohol use disorder. Improving. Continue to trend. Continued alcohol cessation counseling. (4) Diarrhea Qualifiers: Diarrhea type: unspecified type Qualified Code(s): R19.7 - Diarrhea, unspecified Is this a current diagnosis for this admission?: Yes (5) Alcohol abuse Is this a current diagnosis for this admission?: Yes (6) Urinary tract infection Qualifiers: Urinary tract infection type: acute cystitis Hematuria presence: without hematuria Qualified Code(s): N30.00 - Acute cystitis without hematuria Is this a current diagnosis for this admission?: Yes Plan: Continue Rocephin, follow culture results. - Time Time Spent with patient: 35 or more minutes
[2017-12-08] MEDS: CEFTRIAXONE SODIUM 1,000 MG in NORMAL SALINE 100 ML IV SCH (21:17)
[2017-12-08] MEDS: TRAZODONE HCL 50 MG TABLET PO SCH (21:17)
[2017-12-09] MEDS: HEPARIN SOD (PORCINE) 5,000 UNIT/ML 1 ML SYRINGE SUBCUT SCH ×3 (05:18→21:21)
[2017-12-09] MEDS: LEVOTHYROXINE SODIUM 0.05 MG TABLET PO SCH (05:18)
[2017-12-09 06:43] LABS: ALANINE AMINOTRANSFERASE 111 U/L (9-52); ALBUMIN 2.7 g/dL (3.5-5.0); ALKALINE PHOSPHATASE 125 U/L (38-126); ASPARTATE AMINO TRANSFERASE 139 U/L (14-36); BILIRUBIN,DIRECT 0.6 mg/dL (0.0-0.4); BILIRUBIN,TOTAL 0.8 mg/dL (0.2-1.3); TOTAL PROTEIN 4.8 g/dL (6.3-8.2)
[2017-12-09] MEDS: DOCUSATE SODIUM 100 MG CAPSULE PO SCH ×2 (10:31→18:00)
[2017-12-09] MEDS: OXYBUTYNIN CHLORIDE 5 MG TABLET PO SCH (10:31)
[2017-12-09] MEDS: BUSPIRONE HCL 10 MG TABLET PO SCH ×2 (10:31→21:22)
[2017-12-09] MEDS: MAGNESIUM OXIDE 400 MG TABLET PO SCH ×2 (10:31→18:00)
[2017-12-09] MEDS: VENLAFAXINE HCL 75 MG CAP.SR.24H PO SCH (10:32)
--- NOTE | 2017-12-09 17:50 | PDOC PROGRESS REPORT ---
Subjective Progress Note for:: 12/09/17 Subjective:: Slowly improving, but feels very weak. Could hardly get out of bed herself. No more nausea or vomiting. Denies abdominal pain. No fever or chills, no chest pain or shortness of breath or palpitations. Diarrhea has resolved. Tolerating regular diet. Patient works as a substance abuse counselor. She minimizes how much alcohol she drinks, states she drinks to help her sleep, that she can stop drinking anytime. She is not interested in alcohol rehab. Reason For Visit: UTI, HYPOTENSION, HYPONATREMIA Physical Exam Vital Signs: Temp Pulse Resp BP Pulse Ox 98.8 F 78 20 136/71 H 98 12/09/17 15:20 12/09/17 15:20 12/09/17 15:20 12/09/17 15:20 12/09/17 15:20 Intake & Output 12/08/17 12/09/17 12/10/17 06:59 06:59 06:59 Intake Total 3300 1765 200 Balance 3300 1765 200 Weight 71 kg 71.6 kg GEN: NAD, well-developed, well-nourished CV: RRR, NL S1S2 LUNGS: CTA bilaterally ABDOMEN Soft, NT, +BS EXTERMITIES: No e/c/c NEURO: Alert, oriented and 3, generalized weakness Results Laboratory Results: 12/08/17 05:45 12/08/17 05:45 12/09/17 05:37 Total Bilirubin 0.8 AST 139 H ALT 111 H Alkaline Phosphatase 125 Total Protein 4.8 L Albumin 2.7 L Assessment & Plan - Diagnosis (1) Hyponatremia Is this a current diagnosis for this admission?: Yes (2) Hypomagnesemia Is this a current diagnosis for this admission?: Yes (3) Abnormal liver function tests Is this a current diagnosis for this admission?: Yes (4) Diarrhea Qualifiers: Diarrhea type: unspecified type Qualified Code(s): R19.7 - Diarrhea, unspecified Is this a current diagnosis for this admission?: Yes (5) Alcohol abuse Is this a current diagnosis for this admission?: Yes (6) Urinary tract infection Qualifiers: Urinary tract infection type: acute cystitis Hematuria presence: without hematuria Qualified Code(s): N30.00 - Acute cystitis without hematuria Is this a current diagnosis for this admission?: Yes - Plan Summary Plan Summary: (1) Hyponatremia Is this a current diagnosis for this admission?: Yes Plan: Improved. Likely secondary to alcohol use. Now off normal saline. (2) Hypomagnesemia Is this a current diagnosis for this admission?: Yes Plan: Likely secondary to alcoholism. We will continue magnesium oxide. Follow-up level in a.m. (3) Abnormal liver function tests Is this a current diagnosis for this admission?: Yes Plan: Likely secondary to alcohol use disorder. Improving. Continue to trend. Continued alcohol cessation counseling. (4) Diarrhea Qualifiers: Diarrhea type: unspecified type Qualified Code(s): R19.7 - Diarrhea, unspecified Is this a current diagnosis for this admission?: Yes Resolved. (5) Alcohol abuse Is this a current diagnosis for this admission?: Yes Patient minimizing. Continue to encourage rehab. Thiamine, folic acid. (6) Urinary tract infection Qualifiers: Urinary tract infection type: acute cystitis Hematuria presence: without hematuria Qualified Code(s): N30.00 - Acute cystitis without hematuria Is this a current diagnosis for this admission?: Yes Plan: Continue Rocephin, follow culture results. (7) Weakness and debility Qualifiers: Is this a current diagnosis for this admission?: Yes Suspect alcoholism and hyponatremia and electrolytes abnormalities contributory. PT/OT evaluation. Follow-up labs in a.m.
[2017-12-09] MEDS ORDERED: THIAMINE HCL 100 MG TABLET PO ONE (19:00)
[2017-12-09] MEDS ORDERED: FOLIC ACID 1 MG TABLET PO ONE (19:00)
[2017-12-09] MEDS: TRAZODONE HCL 50 MG TABLET PO SCH (21:21)
[2017-12-09] MEDS: LORAZEPAM 1 MG TABLET PO PRN (21:22)
[2017-12-09] MEDS: CEFTRIAXONE SODIUM 1,000 MG in NORMAL SALINE 100 ML IV SCH (21:25)
[2017-12-10] MEDS: HEPARIN SOD (PORCINE) 5,000 UNIT/ML 1 ML SYRINGE SUBCUT SCH ×3 (06:09→22:45)
[2017-12-10] MEDS: LEVOTHYROXINE SODIUM 0.05 MG TABLET PO SCH (06:09)
[2017-12-10 07:35] LABS: HEMATOCRIT 26.4 % (36.0-47.0); HEMOGLOBIN 9.3 g/dL (12.0-15.5); MEAN CORPUSCULAR HEMOGLOBIN 35.6 pg (27.0-33.4); MEAN CORPUSCULAR HGB CONC 35.2 g/dL (32.0-36.0); MEAN CORPUSCULAR VOLUME 101 fl (80-97); PLATELET COUNT 162 10^3/uL (150-450); RED BLOOD COUNT 2.61 10^6/uL (3.72-5.28); RED CELL DISTRIBUTION WIDTH 13.2 % (11.5-14.0); WHITE BLOOD COUNT 3.7 10^3/uL (4.0-10.5)
[2017-12-10 08:13] LABS: ABSOLUTE LYMPHOCYTES# (MANUAL) 0.4 10^3/uL (0.5-4.7); ABSOLUTE MONOCYTES # (MANUAL) 0.5 10^3/uL (0.1-1.4); ABSOLUTE NEUTROPHILS# (MANUAL) 2.8 10^3/uL (1.7-8.2); BASOPHILS % (MANUAL) 0 % (0-2); EOSINOPHILS % (MANUAL) 1 % (0-6); LYMPHOCYTES % (MANUAL) 10 % (13-45); MONOCYTES % (MANUAL) 14 % (3-13); SEGMENTED NEUTROPHILS % (MAN) 75 % (42-78); TOTAL CELLS COUNTED 100
[2017-12-10 08:14] LABS: POLYCHROMASIA SLIGHT; TOXIC GRANULATION 1+
[2017-12-10 08:15] LABS: PLATELET COMMENT ADEQUATE; POIKILOCYTOSIS SLIGHT; TEAR DROP CELLS SLIGHT
[2017-12-10 08:16] LABS: ALANINE AMINOTRANSFERASE 82 U/L (9-52); ALBUMIN 2.5 g/dL (3.5-5.0); ALKALINE PHOSPHATASE 115 U/L (38-126); ANION GAP 5 (5-19); ASPARTATE AMINO TRANSFERASE 100 U/L (14-36); BILIRUBIN,DIRECT 0.4 mg/dL (0.0-0.4); BILIRUBIN,TOTAL 0.6 mg/dL (0.2-1.3); BLOOD UREA NITROGEN 12 mg/dL (7-20); CALCIUM 9.1 mg/dL (8.4-10.2); CARBON DIOXIDE 28 mmol/L (22-30); CHLORIDE 98 mmol/L (98-107); GLUCOSE 93 mg/dL (75-110); POTASSIUM 3.7 mmol/L (3.6-5.0); SODIUM 130.6 mmol/L (137-145); TOTAL PROTEIN 4.7 g/dL (6.3-8.2)
[2017-12-10] MEDS: BUSPIRONE HCL 10 MG TABLET PO SCH ×2 (09:42→22:45)
[2017-12-10] MEDS: FOLIC ACID 1 MG TABLET PO SCH (09:42)
[2017-12-10] MEDS: OXYBUTYNIN CHLORIDE 5 MG TABLET PO SCH (09:43)
[2017-12-10] MEDS: MAGNESIUM OXIDE 400 MG TABLET PO SCH ×2 (09:43→17:25)
[2017-12-10] MEDS: DOCUSATE SODIUM 100 MG CAPSULE PO SCH ×2 (09:43→17:25)
[2017-12-10] MEDS: VENLAFAXINE HCL 75 MG CAP.SR.24H PO SCH (09:43)
[2017-12-10] MEDS: THIAMINE HCL 100 MG TABLET PO SCH (09:43)
[2017-12-10] MEDS: MAGNESIUM SULFATE/D5W 1 GM/100 ML RTUPB IV SCH ×3 (11:03→14:27)
[2017-12-10] MEDS ORDERED: LEVOTHYROXINE SODIUM 0.05 MG TABLET PO SCH (14:53)
--- NOTE | 2017-12-10 14:57 | PDOC PROGRESS REPORT ---
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 Her past medical history significant for rectal carcinoma status post resection and cure, hypertension and alcohol dependence. She presented to the emergency room with nausea vomiting and diarrhea. She was found to be hyponatremic with elevated liver function test. The patient's GI symptoms have resolved at this point. She has persistent elevation of her liver function test and she was found to have evidence of a urinary tract infection. Overall she is significantly weak and debilitated and having difficulty ambulating after this acute illness. She currently she has been seen by physical therapy and will require subacute rehabilitation prior to transitioning home as she lives by herself. Today when I saw her she states that she is feeling better. She is quite concerned due to the weakness she is having especially in her legs. She denies fever chills. No chest pain, shortness of breath or cough. No nausea, vomiting or diarrhea. No dysuria, frequency or hematuria Reason For Visit: UTI, HYPOTENSION, HYPONATREMIA Physical Exam Vital Signs: Temp Pulse Resp BP Pulse Ox 99.5 F 87 22 H 122/64 93 12/10/17 11:39 12/10/17 11:39 12/10/17 11:39 12/10/17 11:39 12/10/17 11:39 Intake & Output 12/09/17 12/10/17 12/11/17 06:59 06:59 06:59 Intake Total 1765 812 355 Balance 1765 812 355 Weight 71.6 kg 71 kg General appearance: PRESENT: no acute distress, well-developed, well-nourished Head exam: PRESENT: atraumatic, normocephalic Mouth exam: PRESENT: moist, tongue midline Respiratory exam: PRESENT: clear to auscultation tierra. ABSENT: rales, rhonchi, wheezes Cardiovascular exam: PRESENT: RRR. ABSENT: diastolic murmur, rubs, systolic murmur GI/Abdominal exam: PRESENT: normal bowel sounds, soft. ABSENT: distended, guarding, mass, organolmegaly, rebound, tenderness Rectal exam: PRESENT: deferred Extremities exam: PRESENT: full ROM. ABSENT: calf tenderness, clubbing, pedal edema Neurological exam: PRESENT: alert, awake, oriented to person, oriented to place , oriented to time, oriented to situation, CN II-XII grossly intact. ABSENT: motor sensory deficit Psychiatric exam: PRESENT: appropriate affect, normal mood. ABSENT: homicidal ideation, suicidal ideation Skin exam: PRESENT: dry, intact, warm. ABSENT: cyanosis, rash Results Laboratory Results: 12/10/17 06:38 12/10/17 06:38 12/10/17 12/10/17 12/10/17 06:38 06:38 06:38 WBC 3.7 L RBC 2.61 L Hgb 9.3 L Hct 26.4 L MCV 101 H MCH 35.6 H MCHC 35.2 RDW 13.2 Plt Count 162 Seg Neutrophils % Not Reportable Lymphocytes % Not Reportable Monocytes % Not Reportable Eosinophils % Not Reportable Basophils % Not Reportable Absolute Neutrophils Not Reportable Absolute Lymphocytes Not Reportable Absolute Monocytes Not Reportable Absolute Eosinophils Not Reportable Absolute Basophils Not Reportable Sodium 130.6 L Potassium 3.7 Chloride 98 Carbon Dioxide 28 Anion Gap 5 BUN 12 Creatinine 0.71 Est GFR ( Amer) > 60 Est GFR (Non-Af Amer) > 60 Glucose 93 Calcium 9.1 Magnesium 1.1 L* Total Bilirubin 0.6 AST 100 H ALT 82 H Alkaline Phosphatase 115 Total Protein 4.7 L Albumin 2.5 L TSH 16.70 H Assessment & Plan - Diagnosis (1) Viral gastroenteritis Is this a current diagnosis for this admission?: Yes Plan: Her nausea, vomiting and diarrhea have totally resolved. She is back to her baseline. This was likely due to a viral gastroenteritis (2) Urinary tract infection Qualifiers: Urinary tract infection type: acute cystitis Hematuria presence: without hematuria Qualified Code(s): N30.00 - Acute cystitis without hematuria Is this a current diagnosis for this admission?: Yes Plan: Continue IV ceftriaxone. This is day number 4 out of 5 days of treatment. (3) Hyponatremia Is this a current diagnosis for this admission?: Yes Plan: This was initially improving but worsened somewhat today. We will repeat sodium studies in the morning. Also will obtain a fasting cortisol level and repeat thyroid studies as her TSH was markedly elevated. (4) Alcohol abuse Is this a current diagnosis for this admission?: Yes Plan: The patient does not believe she needs any help and is minimizing her alcohol use. (5) Abnormal liver function tests Is this a current diagnosis for this admission?: Yes Plan: Liver function tests are trending downwards. This could be due to her recent GI issues versus her underlying alcohol use. This will need to be followed up as an outpatient. She may need referral to gastroenterology for evaluation. (6) Anemia Is this a current diagnosis for this admission?: Yes Plan: She has a macrocytic anemia consistent with her known alcohol use. Going to obtain an anemia panel in the morning. (7) Hypomagnesemia Is this a current diagnosis for this admission?: Yes Plan: Her magnesium level was 1.1 today. She will receive 3 g of magnesium sulfate today and a level will be checked in the morning. (8) Ambulatory dysfunction Is this a current diagnosis for this admission?: Yes Plan: She will require subacute rehabilitation prior to transitioning home. The discharge planners are involved - Time Time Spent with patient: 25-34 minutes - Inpatient Certification Medical Necessity: Other - Inpatient hospitalization remains necessary. Overall the patient is slowly improving. Her GI issues have resolved however she has persistent hyponatremia that needs further workup. Ultimately she is going to require subacute rehabilitation prior to transitioning to home.
[2017-12-10] MEDS: BUTALB/ACETAMINOPHEN/CAFFEINE 1 TAB EACH PO PRN ×2 (16:23→22:45)
[2017-12-10] MEDS: LORAZEPAM 1 MG TABLET PO PRN (22:45)
[2017-12-10] MEDS: CEFTRIAXONE SODIUM 1,000 MG in NORMAL SALINE 100 ML IV SCH (22:45)
[2017-12-10] MEDS: TRAZODONE HCL 50 MG TABLET PO SCH (22:45)
[2017-12-11 06:33] LABS: ABSOLUTE RETICS # 0.065 10^6/uL (0.028-0.122); HEMATOCRIT 26.6 % (36.0-47.0); HEMOGLOBIN 9.3 g/dL (12.0-15.5); MEAN CORPUSCULAR HEMOGLOBIN 35.3 pg (27.0-33.4); MEAN CORPUSCULAR HGB CONC 34.8 g/dL (32.0-36.0); MEAN CORPUSCULAR VOLUME 101 fl (80-97); PLATELET COUNT 183 10^3/uL (150-450); RED BLOOD COUNT 2.63 10^6/uL (3.72-5.28); RED CELL DISTRIBUTION WIDTH 13.3 % (11.5-14.0); RETICULOCYTE COUNT (AUTO) 2.47 % (0.66-2.85); WHITE BLOOD COUNT 4.2 10^3/uL (4.0-10.5)
[2017-12-11] MEDS: HEPARIN SOD (PORCINE) 5,000 UNIT/ML 1 ML SYRINGE SUBCUT SCH ×3 (06:40→22:01)
[2017-12-11] MEDS: LEVOTHYROXINE SODIUM 0.1 MG TABLET PO SCH (06:40)
[2017-12-11 06:56] LABS: ALANINE AMINOTRANSFERASE 68 U/L (9-52); ALBUMIN 2.6 g/dL (3.5-5.0); ALKALINE PHOSPHATASE 100 U/L (38-126); ASPARTATE AMINO TRANSFERASE 76 U/L (14-36); BILIRUBIN,DIRECT 0.4 mg/dL (0.0-0.4); BILIRUBIN,TOTAL 0.6 mg/dL (0.2-1.3); BLOOD UREA NITROGEN 12 mg/dL (7-20); CALCIUM 8.5 mg/dL (8.4-10.2); GLUCOSE 101 mg/dL (75-110); IRON(TIBC) 79.7 ug/dL (37-170); PHOSPHORUS 2.9 mg/dL (2.5-4.5); POTASSIUM 3.3 mmol/L (3.6-5.0); TOTAL PROTEIN 4.7 g/dL (6.3-8.2)
[2017-12-11 07:05] LABS: ABSOLUTE LYMPHOCYTES# (MANUAL) 0.6 10^3/uL (0.5-4.7); ABSOLUTE NEUTROPHILS# (MANUAL) 2.8 10^3/uL (1.7-8.2); BASOPHILS % (MANUAL) 2 % (0-2); EOSINOPHILS % (MANUAL) 5 % (0-6); LYMPHOCYTES % (MANUAL) 14 % (13-45); NUCLEATED RED BLOOD CELLS 3 /100 WBC (0); SEGMENTED NEUTROPHILS % (MAN) 67 % (42-78); TOTAL CELLS COUNTED 100
[2017-12-11 07:07] LABS: PLATELET COMMENT ADEQUATE
[2017-12-11 07:08] LABS: POLYCHROMASIA 1+
[2017-12-11 07:09] LABS: POIKILOCYTOSIS SLIGHT; STOMATOCYTES SLIGHT
[2017-12-11 07:30] LABS: FREE T3 2.88 pg/mL (2.77-5.27); FREE T4 (FREE THYROXINE) 0.73 ng/dL (0.78-2.19)
[2017-12-11 07:44] LABS: THYROID STIMULATING HORMONE 16.2 uIU/mL (0.47-4.68)
[2017-12-11 08:05] LABS: FOLATE > 20.00 ng/mL (>2.76)
[2017-12-11 08:13] LABS: ANION GAP 6 (5-19); CARBON DIOXIDE 29 mmol/L (22-30); CHLORIDE 97 mmol/L (98-107); SODIUM 131.7 mmol/L (137-145)
[2017-12-11] MEDS: FOLIC ACID 1 MG TABLET PO SCH (09:31)
[2017-12-11] MEDS: MAGNESIUM OXIDE 400 MG TABLET PO SCH (09:31)
[2017-12-11] MEDS: OXYBUTYNIN CHLORIDE 5 MG TABLET PO SCH (09:31)
[2017-12-11] MEDS: BUSPIRONE HCL 10 MG TABLET PO SCH ×2 (09:32→22:01)
[2017-12-11] MEDS: DOCUSATE SODIUM 100 MG CAPSULE PO SCH ×2 (09:32→17:00)
[2017-12-11] MEDS: VENLAFAXINE HCL 75 MG CAP.SR.24H PO SCH (09:32)
[2017-12-11] MEDS: THIAMINE HCL 100 MG TABLET PO SCH (09:32)
[2017-12-11] MEDS: BUTALB/ACETAMINOPHEN/CAFFEINE 1 TAB EACH PO PRN (09:41)
[2017-12-11 11:45] LABS: MONOCYTES % (MANUAL) 12 % (3-13); PATH REVIEW PATHOLOGIST REVIEWED
[2017-12-11 11:46] LABS: ABSOLUTE MONOCYTES # (MANUAL) 0.5 10^3/uL (0.1-1.4)
--- NOTE | 2017-12-11 15:52 | PDOC PROGRESS REPORT ---
Subjective Progress Note for:: 12/11/17 Subjective:: Patient states she has a headache but otherwise is feeling better. She states she does feel a little shaky and understands she will need to go to rehab to help build up her strength. she has had no further diarrhea. She denies any abdominal pain. No fever o chills, no weakness or fatigue. She does complain of trouble sleeping and says that is a lot of her problem and why she was drinking the white wine every night Reason For Visit: UTI, HYPOTENSION, HYPONATREMIA Physical Exam Vital Signs: Temp Pulse Resp BP Pulse Ox 99.2 F 84 20 111/65 95 12/11/17 11:08 12/11/17 11:08 12/11/17 11:08 12/11/17 11:08 12/11/17 11:08 Intake & Output 12/10/17 12/11/17 12/12/17 06:59 06:59 06:59 Intake Total 812 1052 350 Balance 812 1052 350 Weight 71 kg 70.4 kg General appearance: PRESENT: no acute distress, well-developed, well-nourished Neck exam: ABSENT: carotid bruit, JVD, lymphadenopathy, thyromegaly Respiratory exam: PRESENT: clear to auscultation tierra. ABSENT: rales, rhonchi, wheezes Cardiovascular exam: PRESENT: RRR. ABSENT: diastolic murmur, rubs, systolic murmur Pulses: PRESENT: normal dorsalis pedis pul Vascular exam: PRESENT: normal capillary refill GI/Abdominal exam: PRESENT: normal bowel sounds, soft. ABSENT: distended, guarding, mass, organolmegaly, rebound, tenderness Extremities exam: PRESENT: full ROM. ABSENT: calf tenderness, clubbing, pedal edema Neurological exam: PRESENT: alert, awake, oriented to person, oriented to place , oriented to time, oriented to situation, CN II-XII grossly intact. ABSENT: motor sensory deficit Psychiatric exam: PRESENT: appropriate affect, normal mood. ABSENT: homicidal ideation, suicidal ideation Results Laboratory Results: 12/11/17 06:09 12/11/17 06:09 12/11/17 12/11/17 12/11/17 06:09 06:09 06:09 WBC 4.2 RBC 2.63 L Hgb 9.3 L Hct 26.6 L MCV 101 H MCH 35.3 H MCHC 34.8 RDW 13.3 Plt Count 183 Seg Neutrophils % Not Reportable Lymphocytes % Not Reportable Monocytes % Not Reportable Eosinophils % Not Reportable Basophils % Not Reportable Absolute Neutrophils Not Reportable Absolute Lymphocytes Not Reportable Absolute Monocytes Not Reportable Absolute Eosinophils Not Reportable Absolute Basophils Not Reportable Retic Count (auto) 2.47 Absolute Retic 0.065 Sodium 131.7 L Potassium 3.3 L Chloride 97 L Carbon Dioxide 29 Anion Gap 6 BUN 12 Creatinine 0.70 Est GFR ( Amer) > 60 Est GFR (Non-Af Amer) > 60 Glucose 101 Serum Osmolality 275 Calcium 8.5 Phosphorus 2.9 Magnesium 1.5 L Iron 79.7 TIBC 181 L % Saturation 44 Ferritin 755.00 H Total Bilirubin 0.6 AST 76 H ALT 68 H Alkaline Phosphatase 100 Total Protein 4.7 L Albumin 2.6 L Vitamin B12 333.0 Folate > 20.00 TSH Free T4 Free T3 pg/mL 12/11/17 06:09 WBC RBC Hgb Hct MCV MCH MCHC RDW Plt Count Seg Neutrophils % Lymphocytes % Monocytes % Eosinophils % Basophils % Absolute Neutrophils Absolute Lymphocytes Absolute Monocytes Absolute Eosinophils Absolute Basophils Retic Count (auto) Absolute Retic Sodium Potassium Chloride Carbon Dioxide Anion Gap BUN Creatinine Est GFR ( Amer) Est GFR (Non-Af Amer) Glucose Serum Osmolality Calcium Phosphorus Magnesium Iron TIBC % Saturation Ferritin Total Bilirubin AST ALT Alkaline Phosphatase Total Protein Albumin Vitamin B12 Folate TSH 16.20 H Free T4 0.73 L Free T3 pg/mL 2.88 Assessment & Plan - Diagnosis (1) Abnormal liver function tests Is this a current diagnosis for this admission?: Yes (2) Depression Is this a current diagnosis for this admission?: Yes Plan: improving, will just continue to monitor (3) Hyperkalemia Is this a current diagnosis for this admission?: Yes Plan: resolved, actually slightly hypokalemic. will just monitor for now, repeat labs in the morning (4) Hypomagnesemia Is this a current diagnosis for this admission?: Yes Plan: given 3 GM yesterday, will give 2 more grams today and repeat level in the morning. Monitor potassium for now and will correct once mag is corrected (5) Urinary tract infection Qualifiers: Urinary tract infection type: acute cystitis Hematuria presence: without hematuria Qualified Code(s): N30.00 - Acute cystitis without hematuria Is this a current diagnosis for this admission?: Yes Plan: Group B strep, will complete current course of Abx (6) Viral gastroenteritis Is this a current diagnosis for this admission?: Yes Plan: resolved (7) Hypertension Is this a current diagnosis for this admission?: Yes Plan: improved on current regiment, will just continue to monitor (8) Hypokalemia Plan: see hypomag (9) Hypothyroid Qualifiers: Hypothyroidism type: unspecified Qualified Code(s): E03.9 - Hypothyroidism , unspecified Plan: on replacement therapy - Time Time Spent with patient: 15-24 minutes - Inpatient Certification Based on my medical assessment, after consideration of the patient's comorbidities, presenting symptoms, or acuity I expect that the services needed warrant INPATIENT care.: Yes I certify that my determination is in accordance with my understanding of Medicare's requirements for reasonable and necessary INPATIENT services [42 CFR 412.3e].: Yes Medical Necessity: Significant Comorbidiites Make Outpatient Treatment Too Risky , Risk of Complication if Not Cared For in Hospital
[2017-12-11] MEDS: MAGNESIUM SULFATE/D5W 1 GM/100 ML RTUPB IV SCH ×2 (17:00→18:16)
[2017-12-11 17:40] LABS: URINE SODIUM 86 mmol/L (30-90)
[2017-12-11 17:44] LABS: OSMOLALITY,URINE 370 mOsm/kg (300-900)
[2017-12-11] MEDS: CEFTRIAXONE SODIUM 1,000 MG in NORMAL SALINE 100 ML IV SCH (22:00)
[2017-12-11] MEDS: TRAZODONE HCL 50 MG TABLET PO SCH (22:01)
[2017-12-11] MEDS: LORAZEPAM 1 MG TABLET PO PRN (22:11)
[2017-12-12] MEDS: BUTALB/ACETAMINOPHEN/CAFFEINE 1 TAB EACH PO PRN (01:12)
[2017-12-12] MEDS: HEPARIN SOD (PORCINE) 5,000 UNIT/ML 1 ML SYRINGE SUBCUT SCH ×3 (05:20→21:26)
[2017-12-12] MEDS: LEVOTHYROXINE SODIUM 0.1 MG TABLET PO SCH (05:20)
[2017-12-12 06:57] LABS: ALANINE AMINOTRANSFERASE 63 U/L (9-52); ALBUMIN 2.8 g/dL (3.5-5.0); ALKALINE PHOSPHATASE 106 U/L (38-126); ANION GAP 5 (5-19); ASPARTATE AMINO TRANSFERASE 68 U/L (14-36); BILIRUBIN,DIRECT 0.5 mg/dL (0.0-0.4); BILIRUBIN,TOTAL 0.5 mg/dL (0.2-1.3); BLOOD UREA NITROGEN 11 mg/dL (7-20); CALCIUM 8.3 mg/dL (8.4-10.2); CARBON DIOXIDE 26 mmol/L (22-30); CHLORIDE 102 mmol/L (98-107); GLUCOSE 107 mg/dL (75-110); POTASSIUM 3.2 mmol/L (3.6-5.0); SODIUM 132.8 mmol/L (137-145); TOTAL PROTEIN 5.3 g/dL (6.3-8.2)
[2017-12-12] MEDS: FOLIC ACID 1 MG TABLET PO SCH (10:12)
[2017-12-12] MEDS: DOCUSATE SODIUM 100 MG CAPSULE PO SCH ×2 (10:12→17:17)
[2017-12-12] MEDS: VENLAFAXINE HCL 75 MG CAP.SR.24H PO SCH (10:12)
[2017-12-12] MEDS: BUSPIRONE HCL 10 MG TABLET PO SCH ×2 (10:12→21:26)
[2017-12-12] MEDS: THIAMINE HCL 100 MG TABLET PO SCH (10:12)
[2017-12-12] MEDS: OXYBUTYNIN CHLORIDE 5 MG TABLET PO SCH (10:12)
--- NOTE | 2017-12-12 15:53 | PDOC PROGRESS REPORT ---
Subjective Progress Note for:: 12/12/17 Subjective:: Patient admitted with weakness as well as diarrhea. She admits to feeling better today although still a little shaky. It appears plan is for him to rehab. A Reason For Visit: UTI, HYPOTENSION, HYPONATREMIA Physical Exam Vital Signs: Temp Pulse Resp BP Pulse Ox 99.0 F 75 17 145/80 H 96 12/12/17 11:17 12/12/17 11:17 12/12/17 11:17 12/12/17 11:17 12/12/17 11:17 Intake & Output 12/11/17 12/12/17 12/13/17 06:59 06:59 06:59 Intake Total 1052 955 Output Total 200 Balance 1052 755 Weight 70.4 kg 55.8 kg General appearance: PRESENT: no acute distress Head exam: PRESENT: atraumatic Ear exam: PRESENT: normal external ear exam Mouth exam: PRESENT: moist, tongue midline Neck exam: ABSENT: carotid bruit, JVD, lymphadenopathy, thyromegaly Respiratory exam: PRESENT: clear to auscultation tierra. ABSENT: rales, rhonchi, wheezes Cardiovascular exam: PRESENT: RRR. ABSENT: diastolic murmur, rubs, systolic murmur GI/Abdominal exam: PRESENT: normal bowel sounds, soft. ABSENT: distended, guarding, mass, organolmegaly, rebound, tenderness Rectal exam: PRESENT: deferred Neurological exam: PRESENT: alert, awake, oriented to person, oriented to place , oriented to time Psychiatric exam: PRESENT: appropriate affect, normal mood. ABSENT: homicidal ideation, suicidal ideation Results Laboratory Results: 12/11/17 06:09 12/12/17 06:23 12/11/17 12/11/17 12/12/17 06:09 16:30 06:23 Sodium 132.8 L Potassium 3.2 L Chloride 102 Carbon Dioxide 26 Anion Gap 5 BUN 11 Creatinine 0.64 Est GFR ( Amer) > 60 Est GFR (Non-Af Amer) > 60 Glucose 107 Calcium 8.3 L Magnesium 1.7 Transferrin 119 L Total Bilirubin 0.5 AST 68 H ALT 63 H Alkaline Phosphatase 106 Total Protein 5.3 L Albumin 2.8 L Urine Osmolality 370 Assessment & Plan - Time Time Spent with patient: Less than 15 minutes Medications reviewed and adjusted accordingly: Yes Anticipated discharge: Acute Rehab Within: within 48 hours - Inpatient Certification Medical Necessity: Significant Comorbidiites Make Outpatient Treatment Too Risky - Plan Summary Plan Summary: bnormal liver function tests probably secondary to alcohol use 2. Depression stable 3. Hypomagnesemia corrected 4. Hypokalemia we will replace 5. Anemia with precipitous drop in hemoglobin possibly due to hemodilution. There is evidence of acute blood loss we will continue to monitor 6. Hyponatremia chronic excellent #7 urinary tract infection currently on antibiotics 8. Viral gastroenteritis resolved 9. Benign essential hypertension controlled 10. Hypothyroidism continue Synthroid
[2017-12-12] MEDS ORDERED: POTASSIUM CHLORIDE 10 MEQ TABLET.SA PO ONE (16:30)
[2017-12-12] MEDS: CEFTRIAXONE SODIUM 1,000 MG in NORMAL SALINE 100 ML IV SCH (21:22)
[2017-12-12] MEDS: TRAZODONE HCL 50 MG TABLET PO SCH (21:26)
[2017-12-12] MEDS: LORAZEPAM 1 MG TABLET PO PRN (21:26)
[2017-12-13] MEDS: LEVOTHYROXINE SODIUM 0.1 MG TABLET PO SCH (05:48)
[2017-12-13] MEDS: HEPARIN SOD (PORCINE) 5,000 UNIT/ML 1 ML SYRINGE SUBCUT SCH ×3 (05:49→21:35)
[2017-12-13] MEDS: MAGNESIUM OXIDE 400 MG TABLET PO SCH ×2 (09:45→18:19)
[2017-12-13] MEDS: VENLAFAXINE HCL 75 MG CAP.SR.24H PO SCH (09:45)
[2017-12-13] MEDS: FOLIC ACID 1 MG TABLET PO SCH (09:45)
[2017-12-13] MEDS: OXYBUTYNIN CHLORIDE 5 MG TABLET PO SCH (09:45)
[2017-12-13] MEDS: THIAMINE HCL 100 MG TABLET PO SCH (09:45)
[2017-12-13] MEDS: BUSPIRONE HCL 10 MG TABLET PO SCH ×2 (09:45→21:35)
[2017-12-13] MEDS: DOCUSATE SODIUM 100 MG CAPSULE PO SCH ×2 (09:46→18:19)
--- NOTE | 2017-12-13 09:51 | PDOC PROGRESS REPORT ---
Subjective Progress Note for:: 12/13/17 Subjective:: Patient admitted with weakness as well as diarrhea. Encouraged to get out of bed with assistance. She is aware that she is currently awaiting rehab placement Reason For Visit: UTI, HYPOTENSION, HYPONATREMIA Physical Exam Vital Signs: Temp Pulse Resp BP Pulse Ox 98.8 F 76 16 145/85 H 96 12/13/17 07:20 12/13/17 07:20 12/13/17 07:20 12/13/17 07:20 12/13/17 07:20 Intake & Output 12/12/17 12/13/17 12/14/17 06:59 06:59 06:59 Intake Total 955 1040 Output Total 200 Balance 755 1040 Weight 55.8 kg 71.5 kg General appearance: PRESENT: no acute distress Head exam: PRESENT: atraumatic Eye exam: PRESENT: conjunctiva pink, EOMI, PERRLA. ABSENT: scleral icterus Ear exam: PRESENT: normal external ear exam Neck exam: PRESENT: carotid bruit Respiratory exam: PRESENT: clear to auscultation tierra. ABSENT: rales, rhonchi, wheezes Cardiovascular exam: PRESENT: RRR. ABSENT: diastolic murmur, rubs, systolic murmur Pulses: PRESENT: normal dorsalis pedis pul GI/Abdominal exam: PRESENT: normal bowel sounds, soft. ABSENT: distended, guarding, mass, organolmegaly, rebound, tenderness Rectal exam: PRESENT: deferred Neurological exam: PRESENT: alert, awake, oriented to person, oriented to place , oriented to time, oriented to situation Psychiatric exam: PRESENT: appropriate affect Skin exam: PRESENT: dry, intact, warm. ABSENT: cyanosis, rash Results Laboratory Results: 12/11/17 06:09 12/12/17 06:23 Assessment & Plan - Time Time Spent with patient: 15-24 minutes Medications reviewed and adjusted accordingly: Yes Anticipated discharge: Acute Rehab Within: within 48 hours - Inpatient Certification Based on my medical assessment, after consideration of the patient's comorbidities, presenting symptoms, or acuity I expect that the services needed warrant INPATIENT care.: Yes Medical Necessity: Risk of Complication if Not Cared For in Hospital - Plan Summary Plan Summary: Abnormal liver function tests probably secondary to alcohol use. Follow up labs in am 2. Depression stable 3. Hypomagnesemia corrected 4. Hypokalemia replaced 5. Anemia with precipitous drop in hemoglobin possibly due to hemodilution. There is NO evidence of acute blood loss we will continue to monitor 6. Hyponatremia chronic #7 urinary tract infection currently on antibiotics 8. Viral gastroenteritis resolved 9. Benign essential hypertension controlled 10. Hypothyroidism continue Synthroid at increased dose. TSH was 16.2. Synthroid dose was increased from 50mcg to 100mcg 11. Dc plan
[2017-12-13] MEDS: LORAZEPAM 1 MG TABLET PO PRN ×2 (13:32→22:56)
[2017-12-13] MEDS: TRAZODONE HCL 50 MG TABLET PO SCH (21:35)
[2017-12-13] MEDS: CEFTRIAXONE SODIUM 1,000 MG in NORMAL SALINE 100 ML IV SCH (21:40)
[2017-12-14] MEDS: LEVOTHYROXINE SODIUM 0.1 MG TABLET PO SCH (05:10)
[2017-12-14] MEDS: HEPARIN SOD (PORCINE) 5,000 UNIT/ML 1 ML SYRINGE SUBCUT SCH ×3 (05:11→21:04)
[2017-12-14] MEDS: THIAMINE HCL 100 MG TABLET PO SCH (09:23)
[2017-12-14] MEDS: VENLAFAXINE HCL 75 MG CAP.SR.24H PO SCH (09:23)
[2017-12-14] MEDS: FOLIC ACID 1 MG TABLET PO SCH (09:23)
[2017-12-14] MEDS: OXYBUTYNIN CHLORIDE 5 MG TABLET PO SCH (09:23)
[2017-12-14] MEDS: BUSPIRONE HCL 10 MG TABLET PO SCH ×2 (09:23→21:03)
[2017-12-14] MEDS: DOCUSATE SODIUM 100 MG CAPSULE PO SCH ×2 (09:24→18:03)
[2017-12-14] MEDS: MAGNESIUM OXIDE 400 MG TABLET PO SCH ×2 (09:24→18:03)
--- NOTE | 2017-12-14 12:38 | PDOC PROGRESS REPORT ---
Subjective Progress Note for:: 12/14/17 Subjective:: Patient admitted with weakness as well as diarrhea. Encouraged to get out of bed with assistance. She is aware that she is currently awaiting rehab placement Reason For Visit: UTI, HYPOTENSION, HYPONATREMIA Physical Exam Vital Signs: Temp Pulse Resp BP Pulse Ox 98.9 F 75 18 139/70 H 100 12/14/17 07:30 12/14/17 07:30 12/14/17 07:30 12/14/17 07:30 12/14/17 07:30 Intake & Output 12/13/17 12/14/17 12/15/17 06:59 06:59 06:59 Intake Total 1040 837 Balance 1040 837 Weight 71.5 kg 70.5 kg General appearance: PRESENT: no acute distress Head exam: PRESENT: atraumatic Eye exam: PRESENT: conjunctiva pink, EOMI, PERRLA. ABSENT: scleral icterus Neck exam: ABSENT: carotid bruit, JVD, lymphadenopathy, thyromegaly Respiratory exam: PRESENT: clear to auscultation tierra. ABSENT: rales, rhonchi, wheezes GI/Abdominal exam: PRESENT: normal bowel sounds, soft. ABSENT: distended, guarding, mass, organolmegaly, rebound, tenderness Rectal exam: PRESENT: deferred Neurological exam: PRESENT: alert, awake, oriented to person, oriented to time, oriented to situation Psychiatric exam: PRESENT: appropriate affect, normal mood. ABSENT: homicidal ideation, suicidal ideation Results Laboratory Results: 12/11/17 06:09 12/12/17 06:23 Assessment & Plan - Time Time Spent with patient: 15-24 minutes Medications reviewed and adjusted accordingly: Yes Anticipated discharge: Acute Rehab Within: within 48 hours - Inpatient Certification Based on my medical assessment, after consideration of the patient's comorbidities, presenting symptoms, or acuity I expect that the services needed warrant INPATIENT care.: Yes Medical Necessity: Risk of Complication if Not Cared For in Hospital - Plan Summary Plan Summary: 1.Abnormal liver function tests probably secondary to alcohol use. 2. Depression stable 3. Hypomagnesemia corrected 4. Hypokalemia replaced 5. Anemia with precipitous drop in hemoglobin possibly due to hemodilution. There is NO evidence of acute blood loss we will continue to monitor 6. Hyponatremia chronic #7 urinary tract infection currently on antibiotics 8. Viral gastroenteritis resolved 9. Benign essential hypertension controlled 10. Hypothyroidism continue Synthroid at increased dose. TSH was 16.2. Synthroid dose was increased from 50mcg to 100mcg 11. Dc plan is Rehab once bed available
[2017-12-14] MEDS: TRAZODONE HCL 50 MG TABLET PO SCH (21:03)
[2017-12-14] MEDS: LORAZEPAM 1 MG TABLET PO PRN (22:29)
[2017-12-15] MEDS ORDERED: DIPHENHYDRAMINE HCL 50 MG/ML VIAL IV ONE (00:30)
[2017-12-15 06:22] LABS: HEMATOCRIT 29.2 % (36.0-47.0); HEMOGLOBIN 10.1 g/dL (12.0-15.5); MEAN CORPUSCULAR HEMOGLOBIN 35.5 pg (27.0-33.4); MEAN CORPUSCULAR HGB CONC 34.7 g/dL (32.0-36.0); MEAN CORPUSCULAR VOLUME 102 fl (80-97); PLATELET COUNT 337 10^3/uL (150-450); RED BLOOD COUNT 2.85 10^6/uL (3.72-5.28); RED CELL DISTRIBUTION WIDTH 14.3 % (11.5-14.0); WHITE BLOOD COUNT 4.7 10^3/uL (4.0-10.5)
[2017-12-15] MEDS: LEVOTHYROXINE SODIUM 0.1 MG TABLET PO SCH (06:35)
[2017-12-15] MEDS: HEPARIN SOD (PORCINE) 5,000 UNIT/ML 1 ML SYRINGE SUBCUT SCH ×3 (06:35→21:18)
[2017-12-15 06:45] LABS: ANION GAP 6 (5-19); BLOOD UREA NITROGEN 13 mg/dL (7-20); CALCIUM 9.2 mg/dL (8.4-10.2); CARBON DIOXIDE 25 mmol/L (22-30); CHLORIDE 103 mmol/L (98-107); GLUCOSE 116 mg/dL (75-110); POTASSIUM 4.4 mmol/L (3.6-5.0); SODIUM 134.1 mmol/L (137-145)
[2017-12-15 07:07] LABS: ABSOLUTE LYMPHOCYTES# (MANUAL) 1.1 10^3/uL (0.5-4.7); ABSOLUTE MONOCYTES # (MANUAL) 0.8 10^3/uL (0.1-1.4); ABSOLUTE NEUTROPHILS# (MANUAL) 2.7 10^3/uL (1.7-8.2); BASOPHILS % (MANUAL) 0 % (0-2); EOSINOPHILS % (MANUAL) 3 % (0-6); LYMPHOCYTES % (MANUAL) 23 % (13-45); MONOCYTES % (MANUAL) 16 % (3-13); NUCLEATED RED BLOOD CELLS 1 /100 WBC (0); SEGMENTED NEUTROPHILS % (MAN) 58 % (42-78); TOTAL CELLS COUNTED 100
[2017-12-15 07:08] LABS: HYPOCHROMASIA SLIGHT; PLATELET CLUMPS PRESENT; POLYCHROMASIA SLIGHT; TOXIC GRANULATION 2+; TOXIC VACUOLATION PRESENT
[2017-12-15] MEDS: THIAMINE HCL 100 MG TABLET PO SCH (09:56)
[2017-12-15] MEDS: FOLIC ACID 1 MG TABLET PO SCH (09:56)
[2017-12-15] MEDS: DOCUSATE SODIUM 100 MG CAPSULE PO SCH ×2 (09:56→16:57)
[2017-12-15] MEDS: BUSPIRONE HCL 10 MG TABLET PO SCH ×2 (09:56→21:18)
[2017-12-15] MEDS: OXYBUTYNIN CHLORIDE 5 MG TABLET PO SCH (09:56)
[2017-12-15] MEDS: MAGNESIUM OXIDE 400 MG TABLET PO SCH ×2 (09:56→16:58)
[2017-12-15] MEDS: VENLAFAXINE HCL 75 MG CAP.SR.24H PO SCH (09:56)
--- NOTE | 2017-12-15 12:50 | PDOC PROGRESS REPORT ---
Subjective Progress Note for:: 12/15/17 Subjective:: Patient admitted with weakness as well as diarrhea. Encouraged to get out of bed with assistance. She is aware that she is currently awaiting rehab placement Reason For Visit: UTI, HYPOTENSION, HYPONATREMIA Physical Exam Vital Signs: Temp Pulse Resp BP Pulse Ox 100.5 F H 93 20 114/59 L 92 12/15/17 10:00 12/15/17 10:00 12/15/17 10:00 12/15/17 10:00 12/15/17 10:00 Intake & Output 12/14/17 12/15/17 12/16/17 06:59 06:59 06:59 Intake Total 837 1080 Balance 837 1080 Weight 70.5 kg 69 kg General appearance: PRESENT: no acute distress, cooperative, thin Head exam: PRESENT: atraumatic, normocephalic Ear exam: PRESENT: normal external ear exam Neck exam: ABSENT: carotid bruit, JVD, lymphadenopathy, thyromegaly Respiratory exam: PRESENT: clear to auscultation tierra. ABSENT: rales, rhonchi, wheezes GI/Abdominal exam: PRESENT: normal bowel sounds, soft. ABSENT: distended, guarding, mass, organolmegaly, rebound, tenderness Rectal exam: PRESENT: deferred Extremities exam: PRESENT: full ROM. ABSENT: calf tenderness, clubbing, pedal edema Musculoskeletal exam: PRESENT: ambulatory Neurological exam: PRESENT: alert, awake, oriented to person, oriented to place , oriented to time Psychiatric exam: PRESENT: appropriate affect, normal mood. ABSENT: homicidal ideation, suicidal ideation Results Laboratory Results: 12/15/17 05:30 12/15/17 05:30 12/15/17 12/15/17 05:30 05:30 WBC 4.7 RBC 2.85 L Hgb 10.1 L Hct 29.2 L MCV 102 H MCH 35.5 H MCHC 34.7 RDW 14.3 H Plt Count 337 Seg Neutrophils % Not Reportable Lymphocytes % Not Reportable Monocytes % Not Reportable Eosinophils % Not Reportable Basophils % Not Reportable Absolute Neutrophils Not Reportable Absolute Lymphocytes Not Reportable Absolute Monocytes Not Reportable Absolute Eosinophils Not Reportable Absolute Basophils Not Reportable Sodium 134.1 L Potassium 4.4 Chloride 103 Carbon Dioxide 25 Anion Gap 6 BUN 13 Creatinine 0.79 Est GFR ( Amer) > 60 Est GFR (Non-Af Amer) > 60 Glucose 116 H Calcium 9.2 Assessment & Plan - Time Time Spent with patient: 15-24 minutes Medications reviewed and adjusted accordingly: Yes Anticipated discharge: Acute Rehab Within: within 72 hours - Inpatient Certification Based on my medical assessment, after consideration of the patient's comorbidities, presenting symptoms, or acuity I expect that the services needed warrant INPATIENT care.: Yes - Plan Summary Plan Summary: 1.Abnormal liver function tests probably secondary to alcohol use. 2. Depression stable 3. Hypomagnesemia corrected 4. Hypokalemia replaced 5. Anemia with precipitous drop in hemoglobin possibly due to hemodilution. There is NO evidence of acute blood loss. H and H stable 6. Hyponatremia chronic #7 urinary tract infection due to strep. Treated 9. Benign essential hypertension controlled 10. Hypothyroidism continue Synthroid at increased dose. TSH was 16.2. Synthroid dose was increased from 50mcg to 100mcg 11. Dc plan is Rehab once bed available
[2017-12-15] MEDS: TRAZODONE HCL 50 MG TABLET PO SCH (21:18)
[2017-12-15] MEDS: LORAZEPAM 1 MG TABLET PO PRN (22:09)
[2017-12-16] MEDS: HEPARIN SOD (PORCINE) 5,000 UNIT/ML 1 ML SYRINGE SUBCUT SCH ×3 (07:03→22:13)
[2017-12-16] MEDS: LEVOTHYROXINE SODIUM 0.1 MG TABLET PO SCH (07:03)
[2017-12-16] MEDS: OXYBUTYNIN CHLORIDE 5 MG TABLET PO SCH (09:30)
[2017-12-16] MEDS: THIAMINE HCL 100 MG TABLET PO SCH (09:30)
[2017-12-16] MEDS: VENLAFAXINE HCL 75 MG CAP.SR.24H PO SCH (09:31)
[2017-12-16] MEDS: FOLIC ACID 1 MG TABLET PO SCH (09:31)
[2017-12-16] MEDS: MAGNESIUM OXIDE 400 MG TABLET PO SCH ×2 (09:32→17:19)
[2017-12-16] MEDS: BUSPIRONE HCL 10 MG TABLET PO SCH ×2 (09:32→22:13)
[2017-12-16] MEDS: DOCUSATE SODIUM 100 MG CAPSULE PO SCH ×2 (09:33→17:20)
--- NOTE | 2017-12-16 18:19 | PDOC PROGRESS REPORT ---
Subjective Progress Note for:: 12/16/17 Subjective:: Patient states her diarrhea has resolved. She and I talked about diet recommendations that would be good for healthy bowels. No dysuria or hematuria. She states she feels a little bit anxious but that is her baseline she tells me. She has been using Ativan at night for insomnia and that has been helping quite a bit. No chest pain or difficulty breathing. No nausea or vomiting. She is eating well. No fever or chills. Reason For Visit: UTI, HYPOTENSION, HYPONATREMIA Physical Exam Vital Signs: Temp Pulse Resp BP Pulse Ox 98.9 F 82 17 132/75 H 92 12/16/17 15:33 12/16/17 15:33 12/16/17 15:33 12/16/17 15:33 12/16/17 15:33 Intake & Output 12/15/17 12/16/17 12/17/17 06:59 06:59 06:59 Intake Total 1080 4260 667 Balance 1080 4260 667 Weight 69 kg 70.3 kg General appearance: PRESENT: no acute distress, cooperative, disheveled, thin Head exam: PRESENT: atraumatic, normocephalic Eye exam: PRESENT: conjunctiva pink, EOMI. ABSENT: scleral icterus Mouth exam: PRESENT: moist, neck supple Neck exam: ABSENT: lymphadenopathy Respiratory exam: PRESENT: clear to auscultation tierra, unlabored. ABSENT: rales , rhonchi, wheezes Cardiovascular exam: PRESENT: RRR. ABSENT: systolic murmur Pulses: PRESENT: normal radial pulses GI/Abdominal exam: PRESENT: normal bowel sounds, soft. ABSENT: distended, guarding, tenderness Rectal exam: PRESENT: deferred Extremities exam: ABSENT: tenderness Musculoskeletal exam: PRESENT: ambulatory Neurological exam: PRESENT: alert, awake, oriented to person, oriented to place , oriented to situation, CN II-XII grossly intact Psychiatric exam: ABSENT: anxious, appropriate affect Skin exam: PRESENT: dry, intact, warm Results Laboratory Results: 12/15/17 05:30 12/15/17 05:30 Assessment & Plan - Diagnosis (1) Transaminitis Is this a current diagnosis for this admission?: Yes Plan: Secondary to alcohol use disorder. Transaminases are improving. Patient does not have any right upper quadrant pain. He has never been diagnosed with liver disease. I am going to order an INR to better evaluate. Her albumin is low. She states that she is a regular alcohol user and has never withdrawn from alcohol. 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 (2) Insomnia Is this a current diagnosis for this admission?: Yes Plan: Unclear etiology. Patient has had insomnia for many years. She had tried many medications for this as prescribed by her doctors. She is taking Ativan here which does help her. She is concerned about the use of benzodiazepines however. She tells me that she has used alcohol in the past to help her sleep. I will explore this with her further and see if we can come up with a better insomnia medication for her. (3) Group B streptococcal infection Is this a current diagnosis for this admission?: Yes Plan: UTI was treated, no symptoms now (4) Depression Is this a current diagnosis for this admission?: Yes Plan: stable, no medication changes (5) Diarrhea Qualifiers: Diarrhea type: unspecified type Qualified Code(s): R19.7 - Diarrhea, unspecified Is this a current diagnosis for this admission?: Yes Plan: Resolved. Will continue to provide dietary counseling. Stool culture negative. (6) Hyponatremia Is this a current diagnosis for this admission?: Yes Plan: Improving. Will repeat sodium again tomorrow. (7) Alcohol abuse Is this a current diagnosis for this admission?: Yes Plan: Patient minimizes her alcohol use disorder. Will try to discuss with her further after full assessment of her liver function. - Time Time Spent with patient: 25-34 minutes Medications reviewed and adjusted accordingly: Yes Anticipated discharge: Acute Rehab - Inpatient Certification Based on my medical assessment, after consideration of the patient's comorbidities, presenting symptoms, or acuity I expect that the services needed warrant INPATIENT care.: Yes I certify that my determination is in accordance with my understanding of Medicare's requirements for reasonable and necessary INPATIENT services [42 CFR 412.3e].: Yes Medical Necessity: Need Close Monitoring Due to Risk of Patient Decompensation, Risk of Complication if Not Cared For in Hospital
[2017-12-16 18:49] LABS: INTERNATIONAL RATION (INR) 0.91; PROTHROMBIN TIME 12.7 SEC (11.4-15.4)
[2017-12-16] MEDS: TRAZODONE HCL 50 MG TABLET PO SCH (22:14)
[2017-12-17] MEDS: LORAZEPAM 1 MG TABLET PO PRN ×2 (00:31→22:45)
[2017-12-17] MEDS: HEPARIN SOD (PORCINE) 5,000 UNIT/ML 1 ML SYRINGE SUBCUT SCH ×3 (05:28→21:27)
[2017-12-17] MEDS: LEVOTHYROXINE SODIUM 0.1 MG TABLET PO SCH (05:29)
[2017-12-17 05:52] LABS: ANION GAP 7 (5-19); BLOOD UREA NITROGEN 13 mg/dL (7-20); CALCIUM 9.2 mg/dL (8.4-10.2); CARBON DIOXIDE 24 mmol/L (22-30); CHLORIDE 105 mmol/L (98-107); GLUCOSE 126 mg/dL (75-110); SODIUM 135.8 mmol/L (137-145)
[2017-12-17] MEDS: DOCUSATE SODIUM 100 MG CAPSULE PO SCH ×2 (10:31→17:28)
[2017-12-17] MEDS: BUSPIRONE HCL 10 MG TABLET PO SCH ×2 (10:31→21:27)
[2017-12-17] MEDS: MAGNESIUM OXIDE 400 MG TABLET PO SCH ×2 (10:31→17:27)
[2017-12-17] MEDS: OXYBUTYNIN CHLORIDE 5 MG TABLET PO SCH (10:31)
[2017-12-17] MEDS: FOLIC ACID 1 MG TABLET PO SCH (10:32)
[2017-12-17] MEDS: THIAMINE HCL 100 MG TABLET PO SCH (10:32)
[2017-12-17] MEDS: VENLAFAXINE HCL 75 MG CAP.SR.24H PO SCH (10:32)
--- NOTE | 2017-12-17 16:05 | PDOC PROGRESS REPORT ---
Subjective Progress Note for:: 12/17/17 Subjective:: Patient continues to feel weak though improving. She still think she would benefit from acute rehab. She is eating and drinking better today. No diarrhea and she had a normal bowel movement. No dysuria. No nausea or vomiting. No chest pain or difficulty breathing. She is feeling less anxious today. She slept well with Ativan last night. Reason For Visit: UTI, HYPOTENSION, HYPONATREMIA Physical Exam Vital Signs: Temp Pulse Resp BP Pulse Ox 98.5 F 79 17 136/79 H 97 12/17/17 11:25 12/17/17 14:00 12/17/17 11:25 12/17/17 11:25 12/17/17 11:25 Intake & Output 12/16/17 12/17/17 12/18/17 06:59 06:59 06:59 Intake Total 4260 1270 Balance 4260 1270 Weight 70.3 kg 68.6 kg General appearance: PRESENT: no acute distress, cooperative, disheveled Head exam: PRESENT: atraumatic, normocephalic Eye exam: PRESENT: conjunctiva pink, EOMI. ABSENT: scleral icterus Ear exam: PRESENT: normal external ear exam Mouth exam: PRESENT: neck supple Respiratory exam: PRESENT: clear to auscultation tierra, unlabored. ABSENT: rales , rhonchi, wheezes Cardiovascular exam: PRESENT: RRR. ABSENT: systolic murmur Pulses: PRESENT: normal radial pulses GI/Abdominal exam: PRESENT: normal bowel sounds, soft. ABSENT: ascites, distended, firm, tenderness Rectal exam: PRESENT: deferred Extremities exam: ABSENT: pedal edema Neurological exam: PRESENT: alert, awake, oriented to person, oriented to place , oriented to situation, CN II-XII grossly intact Psychiatric exam: PRESENT: appropriate affect. ABSENT: anxious Skin exam: PRESENT: dry, warm Results Laboratory Results: 12/15/17 05:30 12/17/17 05:07 12/17/17 05:07 Sodium 135.8 L Potassium 4.0 Chloride 105 Carbon Dioxide 24 Anion Gap 7 BUN 13 Creatinine 0.67 Est GFR ( Amer) > 60 Est GFR (Non-Af Amer) > 60 Glucose 126 H Calcium 9.2 Assessment & Plan - Diagnosis (1) Transaminitis Is this a current diagnosis for this admission?: Yes Plan: Likely related to alcohol abuse. Will check hepatitis panel to assure that this is not infectious. (2) Insomnia Is this a current diagnosis for this admission?: Yes Plan: Continue with Ativan as needed. (3) Group B streptococcal infection Is this a current diagnosis for this admission?: Yes Plan: Urinary tract infection has been treated. (4) Depression Is this a current diagnosis for this admission?: Yes Plan: Stable on her current medication. (5) Diarrhea Qualifiers: Diarrhea type: unspecified type Qualified Code(s): R19.7 - Diarrhea, unspecified Is this a current diagnosis for this admission?: Yes Plan: Resolved. Continue current diet. (6) Hyponatremia Is this a current diagnosis for this admission?: Yes Plan: Improving. Continue to monitor periodically. (7) Alcohol abuse Is this a current diagnosis for this admission?: Yes Plan: Patient drinks a bottle of wine a night per her report. She does not think that this is a problem. Unfortunately now she has medical problems likely related to alcohol including alcoholic hepatitis. Will continue to discuss with her the importance of either cessation or moderation. 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 We will continue to try. - Time Time Spent with patient: 15-24 minutes Anticipated discharge: Acute Rehab - Inpatient Certification Based on my medical assessment, after consideration of the patient's comorbidities, presenting symptoms, or acuity I expect that the services needed warrant INPATIENT care.: Yes I certify that my determination is in accordance with my understanding of Medicare's requirements for reasonable and necessary INPATIENT services [42 CFR 412.3e].: Yes Medical Necessity: Significant Comorbidiites Make Outpatient Treatment Too Risky , Risk of Complication if Not Cared For in Hospital
[2017-12-17] MEDS: TRAZODONE HCL 50 MG TABLET PO SCH (21:27)
[2017-12-18] MEDS: LEVOTHYROXINE SODIUM 0.1 MG TABLET PO SCH (05:50)
[2017-12-18] MEDS: HEPARIN SOD (PORCINE) 5,000 UNIT/ML 1 ML SYRINGE SUBCUT SCH ×3 (05:50→21:52)
[2017-12-18] MEDS: FOLIC ACID 1 MG TABLET PO SCH (09:16)
[2017-12-18] MEDS: THIAMINE HCL 100 MG TABLET PO SCH (09:16)
[2017-12-18] MEDS: VENLAFAXINE HCL 75 MG CAP.SR.24H PO SCH (09:17)
[2017-12-18] MEDS: MAGNESIUM OXIDE 400 MG TABLET PO SCH ×2 (09:17→18:07)
[2017-12-18] MEDS: BUSPIRONE HCL 10 MG TABLET PO SCH ×2 (09:17→21:51)
[2017-12-18] MEDS: DOCUSATE SODIUM 100 MG CAPSULE PO SCH ×2 (09:17→18:07)
[2017-12-18] MEDS: OXYBUTYNIN CHLORIDE 5 MG TABLET PO SCH (09:17)
[2017-12-18] MEDS: LORAZEPAM 1 MG TABLET PO PRN (10:20)
[2017-12-18] MEDS: BUTALB/ACETAMINOPHEN/CAFFEINE 1 TAB EACH PO PRN (19:54)
--- NOTE | 2017-12-18 20:11 | PDOC PROGRESS REPORT ---
Subjective Progress Note for:: 12/18/17 Subjective:: Patient was frustrated today about her medical problems. She spoke at length about having lost her job and needing to get another job. She has been treated for depression for many years she tells me and she is to speak with a counselor. She thinks she will benefit from speaking to a counselor now. Told me that she sometimes wonders why she is even here but would never consider taking her own life. No chest pain or difficulty breathing. No abdominal pain nausea or vomiting. She is eating and drinking well. No fevers or chills. She is feeling weak. Reason For Visit: UTI, HYPOTENSION, HYPONATREMIA Physical Exam Vital Signs: Temp Pulse Resp BP Pulse Ox 97.9 F 74 17 152/81 H 100 12/18/17 15:36 12/18/17 15:36 12/18/17 15:36 12/18/17 15:36 12/18/17 15:36 Intake & Output 12/17/17 12/18/17 12/19/17 06:59 06:59 06:59 Intake Total 1270 1057 0 Balance 1270 1057 0 Weight 68.6 kg 68.8 kg General appearance: PRESENT: cooperative, mild distress Eye exam: PRESENT: EOMI Respiratory exam: PRESENT: clear to auscultation tierra, unlabored. ABSENT: rales , rhonchi, wheezes Cardiovascular exam: PRESENT: RRR. ABSENT: systolic murmur Pulses: PRESENT: normal radial pulses GI/Abdominal exam: PRESENT: normal bowel sounds, soft. ABSENT: distended, firm , tenderness Neurological exam: PRESENT: alert, awake, oriented to person, oriented to place , oriented to situation Psychiatric exam: PRESENT: anxious, depressed Skin exam: PRESENT: dry, warm Results Laboratory Results: 12/15/17 05:30 12/17/17 05:07 Assessment & Plan - Diagnosis (1) Transaminitis Is this a current diagnosis for this admission?: Yes Plan: As of the second Ryan to alcohol use disorder. Patient denies that she has a problem with this. I think counseling would really be some helpful for her. Transaminitis is improving. (2) Insomnia Is this a current diagnosis for this admission?: Yes Plan: Patient is using trazodone and as needed Ativan with good effect. He states she has been on multiple medications for insomnia throughout her life and sometimes she uses alcohol for her insomnia. He will likely need to be discharged with a safer regimen for insomnia. (3) Group B streptococcal infection Is this a current diagnosis for this admission?: Yes Plan: Urinary tract infection, treatment completed. (4) Depression Is this a current diagnosis for this admission?: Yes Plan: I have asked for a behavioral health consult. We will continue her antidepressant occasion. (5) Diarrhea Qualifiers: Diarrhea type: unspecified type Qualified Code(s): R19.7 - Diarrhea, unspecified Is this a current diagnosis for this admission?: Yes Plan: Resolved. Noninfectious. Possibly related to alcohol abuse. (6) Hyponatremia Is this a current diagnosis for this admission?: Yes Plan: Likely related to alcohol use disorder, improved with fluid hydration. (7) Alcohol abuse Is this a current diagnosis for this admission?: Yes Plan: Patient likely has alcohol use disorder and may be treating her mental health problems with alcohol. Also she may be treating her insomnia with alcohol. She would benefit from behavioral health counseling at this point. She is a drug and alcohol abuse counselor herself. - Time Time Spent with patient: 25-34 minutes Medications reviewed and adjusted accordingly: Yes Anticipated discharge: Acute Rehab - Patient qualified for acute rehab when she last saw physical therapy. If we are unable to place her she may be able to go home and may need another evaluation with physical therapy. She has been waiting for a bed. - Inpatient Certification Based on my medical assessment, after consideration of the patient's comorbidities, presenting symptoms, or acuity I expect that the services needed warrant INPATIENT care.: Yes I certify that my determination is in accordance with my understanding of Medicare's requirements for reasonable and necessary INPATIENT services [42 CFR 412.3e].: Yes Medical Necessity: Significant Comorbidiites Make Outpatient Treatment Too Risky , Need Close Monitoring Due to Risk of Patient Decompensation, Risk of Complication if Not Cared For in Hospital
[2017-12-18] MEDS: TRAZODONE HCL 50 MG TABLET PO SCH (21:51)
[2017-12-19] MEDS: LORAZEPAM 1 MG TABLET PO PRN (00:21)
[2017-12-19] MEDS: HEPARIN SOD (PORCINE) 5,000 UNIT/ML 1 ML SYRINGE SUBCUT SCH (06:30)
[2017-12-19] MEDS: LEVOTHYROXINE SODIUM 0.1 MG TABLET PO SCH (06:30)
[2017-12-19 06:38] LABS: HEPATITIS A AB IGM Negative (Negative); HEPATITIS B CORE AB IGM Negative (Negative); HEPATITS B SURFACE ANTIGEN Negative (Negative)
[2017-12-19 09:07] LABS: HEPATITIS C VIRUS ANTIBODY 0.1 s/co ratio (0.0-0.9)
[2017-12-19] MEDS: VENLAFAXINE HCL 75 MG CAP.SR.24H PO SCH (09:11)
[2017-12-19] MEDS: OXYBUTYNIN CHLORIDE 5 MG TABLET PO SCH (09:11)
[2017-12-19] MEDS: BUSPIRONE HCL 10 MG TABLET PO SCH (09:11)
[2017-12-19] MEDS: DOCUSATE SODIUM 100 MG CAPSULE PO SCH (09:13)
[2017-12-19] MEDS: MAGNESIUM OXIDE 400 MG TABLET PO SCH (09:13)
[2017-12-19] MEDS: THIAMINE HCL 100 MG TABLET PO SCH (09:13)
[2017-12-19] MEDS: FOLIC ACID 1 MG TABLET PO SCH (09:13)
--- NOTE | 2017-12-19 10:15 | PDOC DISCHARGE SUMMARY ---
General - Admit/Disc Date/PCP Admission Date/Primary Care Provider: 12/07/17 04:31 NARCISO CHICAS MD Discharge Date: 12/19/17 - Discharge Diagnosis (1) Viral gastroenteritis Is this a current diagnosis for this admission?: Yes Summary: The patient had diarrhea, nausea and vomiting. This could be due to her alcohol use versus a viral gastroenteritis. In any event all of it is totally resolved. (2) Urinary tract infection Is this a current diagnosis for this admission?: Yes Summary: She is completed a course of therapy (3) Hyponatremia Is this a current diagnosis for this admission?: Yes Summary: Chronic and stable, likely due to underlying alcohol use (4) Alcohol abuse Is this a current diagnosis for this admission?: Yes Summary: The patient denies that she has issues with alcohol. (5) Abnormal liver function tests Is this a current diagnosis for this admission?: Yes Summary: Likely related to underlying alcohol use. (6) Anemia Is this a current diagnosis for this admission?: Yes Summary: The patient has a microcytic anemia. Further workup can be obtained as an outpatient. (7) Hypomagnesemia Is this a current diagnosis for this admission?: Yes Summary: Repleted and resolved (8) Ambulatory dysfunction Is this a current diagnosis for this admission?: Yes Summary: She is significantly debilitated after this acute illness. She will be requiring subacute rehabilitation at discharge (9) Depression Is this a current diagnosis for this admission?: Yes Summary: Continue home regimen - Additional Information Resuscitation Status: Full Code Prescriptions: Trazodone HCl [Desyrel 50 mg Tablet] 100 mg PO QHS #60 tablet Lorazepam [Ativan 1 mg Tablet] 1 mg PO Q8HP PRN #15 tablet PRN Reason: Buspirone HCl [Buspar 30 mg Tablet] 1 tab PO BID #30 tab Oxybutynin Chloride [Ditropan Xl] 10 mg PO DAILY #30 tab.er.24 Venlafaxine HCl ER [Effexor Xr 75 mg Cap.sr] 150 mg PO DAILY #60 cap.sr.24h Home Medications: Buspirone HCl [Buspar 30 mg Tablet] 1 tab PO BID #30 tab 12/19/17 Butalb/Acetaminophen/Caffeine [Fioricet (50-325-40 mg) Tablet] 1 tab PO Q6HP PRN #0 each 12/19/17 Docusate Sodium [Colace 100 mg Capsule] 100 mg PO BID capsule 12/19/17 Folic Acid [Folvite 1 mg Tablet] 1 mg PO DAILY tablet 12/19/17 Ipratropium/Albuterol Sulfate [Duoneb 3 ml Ampul] 3 ml NEB RTQ6HP PRN vial.neb 12/19/17 Levothyroxine Sodium [Synthroid 0.1 mg Tablet] 0.1 mg PO Q6AM tablet 12/19/17 Lorazepam [Ativan 1 mg Tablet] 1 mg PO Q8HP PRN #15 tablet 12/19/17 Magnesium Oxide [Mag-Ox 400 mg Tablet] 400 mg PO BID tablet 12/19/17 Oxybutynin Chloride [Ditropan Xl] 10 mg PO DAILY #30 tab.er.24 12/19/17 Thiamine HCl [Thiamine 100 mg Tablet] 100 mg PO DAILY tablet 12/19/17 Trazodone HCl [Desyrel 50 mg Tablet] 100 mg PO QHS #60 tablet 12/19/17 Venlafaxine HCl ER [Effexor Xr 75 mg Cap.sr] 150 mg PO DAILY #60 cap.sr.24h 06/28 History of Present Illness History of Present Illness: MARIO MONTELONGO is a 72 year old female who presented with nausea, vomiting and diarrhea. 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 Her past medical history significant for rectal carcinoma status post resection and cure, hypertension and alcohol dependence. She presented to the emergency room with nausea vomiting and diarrhea. She was found to be hyponatremic with elevated liver function test. It was felt that she may have had a viral gastroenteritis or that her GI symptoms could be due to her alcohol use. The patient's GI symptoms have resolved at this point. She has persistent elevation of her liver function test and she was found to have evidence of a urinary tract infection. She completed a course of antibiotic therapy. Throughout the hospitalization the patient maintained that she did not abuse alcohol and did not need any help. She does have underlying depression. Her hospitalization has been prolonged due to the fact that the discharge planners were trying to get her placed for subacute rehabilitation. She has accepted a bed offer in [place] and will be transitioned there this afternoon in stable condition. She should follow-up with her primary care physician when she is released from rehab. At this point maximum hospital benefits been reached. The patient will be discharged to subacute rehabilitation today in stable condition. Physical Exam Vital Signs: Temp Pulse Resp BP Pulse Ox 98.8 F 73 17 138/88 H 100 12/19/17 08:28 12/19/17 08:28 12/19/17 08:28 12/19/17 08:28 12/19/17 08:28 Intake & Output 12/18/17 12/19/17 12/20/17 06:59 06:59 06:59 Intake Total 1057 333 Balance 1057 333 Weight 68.8 kg 70 kg General appearance: PRESENT: no acute distress Head exam: PRESENT: atraumatic, normocephalic Mouth exam: PRESENT: moist, tongue midline Respiratory exam: PRESENT: clear to auscultation tierra. ABSENT: rales, rhonchi, wheezes Cardiovascular exam: PRESENT: RRR. ABSENT: diastolic murmur, rubs, systolic murmur GI/Abdominal exam: PRESENT: normal bowel sounds, soft. ABSENT: distended, guarding, mass, organolmegaly, rebound, tenderness Rectal exam: PRESENT: deferred Extremities exam: PRESENT: full ROM. ABSENT: calf tenderness, clubbing, pedal edema Neurological exam: PRESENT: alert, awake, oriented to person, oriented to place , oriented to time, oriented to situation, CN II-XII grossly intact. ABSENT: motor sensory deficit Psychiatric exam: PRESENT: depressed Skin exam: PRESENT: dry, intact, warm. ABSENT: cyanosis, rash Results Laboratory Results: 12/15/17 05:30 12/17/17 05:07 Qualifiers - * [facility] BEING DISCHARGED WITH ANY OF THE FOLLOWING DIAGNOSIS?: No Plan Time Spent: Greater than 30 Minutes
[2017-12-19 15:55] VITALS: BP 156/74
== END 2017-12-19 16:25 | disposition short-term general hospital (02) | DRG 641 ==
LOC: ER 16:22 → EH 12-07 04:31 → OBSVTOIN 12-07 04:31 → 3S 12-07 06:05 → 4N 12-12 05:24
PROVIDERS: ADMIT Internal Medicine; ATTEND Internal Medicine
DX: E87.1 Hypo-osmolality and hyponatremia (principal); N39.0 Urinary tract infection, site not specified; A08.4 Viral intestinal infection, unspecified; F10.20 Alcohol dependence, uncomplicated; E83.42 Hypomagnesemia; F32.9 Major depressive disorder, single episode, unspecified; E78.5 Hyperlipidemia, unspecified; I10 Essential (primary) hypertension; E03.9 Hypothyroidism, unspecified; R74.0 Nonspecific elevation of levels of transaminase and lactic acid dehydrogenase [LDH]; G47.00 Insomnia, unspecified; B95.1 Streptococcus, group B, as the cause of diseases classified elsewhere; R19.7 Diarrhea, unspecified; E87.5 Hyperkalemia; R94.5 Abnormal results of liver function studies; D64.9 Anemia, unspecified; Z85.048 Personal history of other malignant neoplasm of rectum, rectosigmoid junction, and anus; Z79.899 Other long term (current) drug therapy; Z90.710 Acquired absence of both cervix and uterus; Z88.5 Allergy status to narcotic agent
CPT/HCPCS: 36415; 80048; 80053; 80074; 80076; 80307; 81001; 82533; 82550; 82607; 82728; 82746; 83540; 83550; 83690; 83735; 83930; 83935; 84100; 84300; 84439; 84443; 84466; 84481; 84484; 85025; 85045; 85610; 87045; 87086; 87088; 87205; 87493; 93005; 93010; 96361; 96365; 96372; 96375; 99285; G8978-GP; G8979-GP; J0696; J1644; J2405; J3411; J3475; J3490; J7030; J7050